=== PATIENT | female | born 1965 | race Caucasian/White ===

== ENCOUNTER 2020-07-10 16:32 | Inpatient (IN) | payer MEDICAID, SELFPAY ==
[2020-07-10 16:36] VITALS: BP 199/90; PULSE 93; RESP 20; TEMP 37.8; O2SAT 99; BMI 42.8
--- NOTE | 2020-07-10 17:57 | CT_ITS ---
EXAMINATION: CT CHEST, ABDOMEN AND PELVIS WITHOUT CONTRAST CLINICAL INFORMATION: Chest pain, abdominal pain and vaginal bleeding. COMPARISON: CT abdomen and pelvis 03/13/2020. TECHNIQUE: Multidetector volumetric imaging was performed from the thoracic inlet through the pubic symphysis . Sagittal and coronal reformatted images were obtained on the technologist's workstation. Imaging, especially in the chest is markedly degraded by motion artifact. This CT examination was performed using dose optimization techniques as appropriate, variously including the following: *Automated exposure control. *Adjustment of mA and/or kV according to patient size (this includes techniques or standardized protocols for targeted exams where dose is matched to indication/reason for exam; i.e. extremities or head). *Use of iterative reconstruction technique. DLP: 1618 mGy-cm FINDINGS: CHEST: Lung: Lungs are hypoinflated. Bibasilar atelectasis is seen. No masses or consolidations are present. Mediastinum: There is mild cardiac enlargement. Moderately extensive coronary calcifications are present. No pleural effusions are seen. Pericardium/Pleura: No significant effusion. No pleural mass or thickening. Chest Wall/Axilla: Unremarkable. ABDOMEN/PELVIS: Peritoneal Space: No significant free air or free fluid identified. Liver, Gallbladder, Biliary Tree: The liver surface is nodular suggesting cirrhosis. The gallbladder is unremarkable with no evidence of radiopaque gallstones, gallbladder wall thickening, or obvious pericholecystic inflammatory changes. Pancreas: Unremarkable. Spleen: Unremarkable. Adrenal Glands: Unremarkable. Kidneys and Ureters: The kidneys are normal in size, shape, and attenuation. A small left renal cyst is probably present. No hydronephrosis, hydroureter, or calculi seen. No perinephric stranding. Bladder: The bladder is markedly distended similar to that noted previously. No bladder mass is seen. Detail is obscured by bilateral hip prostheses. Gastrointestinal Tract: The small and large bowel are unremarkable. The appendix is unremarkable. Abdominal Wall: There is generalized weakness in the abdominal wall with anterior bulging. A focal hernia is not seen. Lymph Nodes: No lymphadenopathy retroperitoneal. Vascular: Atherosclerotic changes but no evidence of AAA. The IVC appears unremarkable. PELVIC VISCERA: An anteverted uterus is present. Both ovaries are identified and appear enlarged but similar to the prior study. An abnormal adnexal mass is not seen. OSSEUS STRUCTURES: Bilateral hip prostheses are present marked degenerative change is present throughout the spine. Large flowing anterior osteophytes are present especially from L2 through L5. IMPRESSION: 1. Slightly nodular appearance to liver suggesting underlying cirrhosis. 2. Mild cardiac enlargement with coronary calcifications. 3. Distended bladder. 4. Bilaterally prominent ovaries, unchanged.
--- NOTE | 2020-07-10 17:57 | ECG_ITS ---
Test Reason : SOB Blood Pressure : / mmHG Vent. Rate : 083 BPM Atrial Rate : 083 BPM P-R Int : 176 ms QRS Dur : 098 ms QT Int : 414 ms P-R-T Axes : 000 -20 035 degrees QTc Int : 486 ms Normal sinus rhythm Left anterior fascicular block unusual p-wave axis Abnormal ECG When compared with ECG of 13-MAR-2020 21:51, abnormal p-waves are new Clinical Correlation Advised Referred By: Michelle Keys Electronically Signed By:RUBEN ADAMS MD
--- NOTE | 2020-07-10 17:58 | XR_ITS ---
EXAMINATION: XR CHEST CLINICAL INFORMATION: Chest pain COMPARISON: 09/11/2019 TECHNIQUE: Frontal view of the chest was obtained. FINDINGS: Again seen is cardiomegaly. Upper zone redistribution compared to the prior study which may indicate some minimal pulmonary vascular congestion. No infiltrates or lung masses are seen. Atelectasis present at the right lung base. Severe degenerative changes seen in both shoulders. IMPRESSION: No acute intrathoracic disease. There may be some minimal pulmonary vascular congestion present.
--- NOTE | 2020-07-10 18:01 | ED_ITS ---
HPI - General Adult General Chief complaint: Vaginal Bleeding Stated complaint: Vag Bleed x5 days Time Seen by Provider: 07/10/20 17:57 Source: patient Mode of arrival: EMS Limitations: no limitations History of Present Illness HPI narrative: 54-year-old female presents with multiple complaints. States that she has chest pain and pressure with palpitations, feels that her chest is tight And that she cannot take a deep breath. She feels short of breath and has abdominal pain with vaginal bleeding. She has known uterine cancer, and was scheduled for hysterectomy 3 months ago however had heart attack and her surgery was postponed. The symptoms have been ongoing for the past few months, with the exception of vaginal bleeding which started 1 week ago. She has gone through 6 pads per day. She reports that the swelling in her legs have gotten worse, that she has not been using her oxygen and that she should be on 2.5 L continuously. she does report intermittent diaphoresis, chills, weakness, and fatigue. Onset (ago): week(s) Location: chest, abdomen and pelvis Radiation: non-radiation Severity: severe Severity scale (1-10): 10 Quality: stabbing, aching, crushing and constant Pain Consistency: constant Relieving factors: none Exacerbating factors: movement Associated symptoms: diaphoresis, fever/chills, malaise and shortness of breath Treatments prior to arrival: none Related Data Allergies Allergy/AdvReac Type Severity Reaction Status Date / Time No Known Allergies Allergy Mild NOT Unverified 06/17/20 15:19 APPLICABLE statins Allergy Unknown myositis Uncoded 12/30/19 00:00 Review of Systems Review of Systems: Constitutional: No Fever, Intermittent chills ENT/Mouth: No sore throat, No Rhinorrhea Eyes: No Eye Pain, No Redness Cardiovascular: left-sided chest pain, pressure, shortness of breath, bilateral lower extremity edema Respiratory: No Cough, No Sputum, No Wheezing Gastrointestinal: positive Nausea, No Vomiting, No Diarrhea, positive abdominal pain, Genitourinary: positive irregular bleeding, No Dysuria, No Urinary Frequency, positive pelvic pain Musculoskeletal: No Myalgias Skin: No rash Neuro: Weakness, No Headache Psych: No Anxiety/Panic, No Depression Heme/Lymph: No bruising, No Lymphadenopathy Endocrine: No Polyuria, No Polydipsia PMFSH Past Medical History Attestation statement: The following information was validated with the patient. Medical History CHF (congestive heart failure) Diabetes HTN (hypertension) Pancreatitis Social History Social History Alcohol intake: never Smoked in Last 30 Days: No Use of substances other than those prescribed or required for medical reasons: No Advance Directives: No Advance Directives Information Provided: Yes Physical Exam Vital Signs: Vital Signs: Vital Signs Temp Pulse Resp BP Pulse Ox 07/10/20 22:49 69 16 144/64 H 07/10/20 20:40 70 16 142/64 H 07/10/20 19:37 16 07/10/20 19:32 79 16 151/70 H 100 07/10/20 16:36 100.0 F 93 20 199/90 H 99 Body Mass Index 42.8 Appearance: Alert. Oriented X3. moderate distress. Eyes: Pupils equal, round and reactive to light. ENT: Pharynx normal. Neck: Normal inspection. Neck supple. CVS: Normal heart rate and rhythm. Pulses normal. Respiratory: No respiratory distress. Breath sounds normal. Abdomen: Soft and tender to palpation to suprapubic. morbid obesity Skin: Skin warm and dry. Normal skin color. Normal skin turgor. Extremities: +3 pitting edema bilateral lower extremities. Neuro: Oriented X 3. No motor deficit. No sensory deficit. Course Course Course Narrative: patient has multiple complaints including chest pain, abdominal pain, vaginal bleeding, uterine cancer, and bilateral lower extremity swelling. We will rule out ACS, acute abdomen, complete pelvic exam, and labs. Pelvic exam shows closed cervix, with moderate amounts of dark blood with manju tting about 3 mm in size, malodorous, no purulent drainage, no cervical motion tenderness or purulent drainage, adnexal tenderness bilaterally. 2 RNs at bedside to assist with procedure. Patient tolerated procedure well. Reevaluation(s) Reevaluation #1: Patient complaining of pain, dry heaving, 2nd dose of Dilaudid and pain Time: 20:27 Reevaluation #2: discussion with hospitalist regarding plan of care, patient will be admitted, consult with OBGYN for vaginal bleeding, discussion with OBGYN, if symptoms persist or bleeding worsens OBGYN will consult. Time: 21:40 Consultations Consultation #1: Dav Time: 21:40 Consultation #2: Bon Medical Decision Making Differential Diagnosis Differential Diagnosis: Abnormal vaginal bleeding, uterine cancer, anemia, [place] Medical Records Medical records reviewed: Yes I reviewed the patient's medical records. Lab Data Lab results reviewed: Yes I reviewed the patient's lab results. Result diagrams: 07/10/20 18:29 07/10/20 19:15 Labs: Lab Results 07/10/20 07/10/20 07/10/20 Range/Units 18:29 18:29 18:29 WBC 5.7 (4.8-10.8) X10*3/uL RBC 3.34 L (4.20-5.50) X10*6/uL Hgb 10.3 L (12.0-16.0) g/dl Hct 32.0 L (37-47) % MCV 95.8 (80-98) fL MCH 30.8 (27.0-33.0) pg MCHC 32.2 (31.0-35.0) g/dl RDW 13.3 (11.0-16.0) % Plt Count 120 L (160-400) X10*3/uL MPV 11.4 (9.4-12.3) fL Immature Gran % (Auto) 0.4 (0.0-0.4) % Neut % (Auto) 57.4 (45-73) % Lymph % (Auto) 27.4 (20-40) % O'Brien % (Auto) 9.9 (2-11) % Eos % (Auto) 4.2 H (0-4) % Baso % (Auto) 0.7 (0-2) % Lymph # (Auto) 1.6 (1.2-4.9) X10*3/uL O'Brien # (Auto) 0.6 (0.1-1.2) X10*3/uL Eos # (Auto) 0.2 (0.0-0.4) X10*3/uL Baso # (Auto) 0.0 (0.0-0.2) X10*3/uL Abs Immat Gran (auto) 0.02 (0.00-0.03) X10*3/uL Absolute Neuts (auto) 3.3 (2.0-8.3) X10*3/uL Absolute Nucleated RBC 0.000 (0.0-0.012) X10*3/uL Nucleated RBC % (auto) 0.0 (0.0-0.2) /100WBC Smear Tech's Comments VERIFIED PT 11.4 (10.8-13.0) SEC INR 1.0 (0.9-1.1) Sodium Cancelled Potassium Cancelled Chloride Cancelled Carbon Dioxide Cancelled Anion Gap Cancelled BUN Cancelled Creatinine Cancelled Estim Creat Clear Calc Cancelled Estimated GFR Cancelled Random Glucose Cancelled Lactic Acid (0.5-2.0) mmol/L Calcium Cancelled Magnesium Cancelled Total Bilirubin Cancelled Direct Bilirubin Cancelled AST Cancelled ALT Cancelled Alkaline Phosphatase Cancelled Troponin I High Sens (<3.5-17.0) ng/L B-Natriuretic Peptide (<100) pg/mL Total Protein Cancelled Albumin Cancelled Lipase Cancelled Blood Type Antibody Screen 07/10/20 07/10/20 07/10/20 Range/Units 18:29 18:29 18:59 WBC (4.8-10.8) X10*3/uL RBC (4.20-5.50) X10*6/uL Hgb (12.0-16.0) g/dl Hct (37-47) % MCV (80-98) fL MCH (27.0-33.0) pg MCHC (31.0-35.0) g/dl RDW (11.0-16.0) % Plt Count (160-400) X10*3/uL MPV (9.4-12.3) fL Immature Gran % (Auto) (0.0-0.4) % Neut % (Auto) (45-73) % Lymph % (Auto) (20-40) % O'Brien % (Auto) (2-11) % Eos % (Auto) (0-4) % Baso % (Auto) (0-2) % Lymph # (Auto) (1.2-4.9) X10*3/uL O'Brien # (Auto) (0.1-1.2) X10*3/uL Eos # (Auto) (0.0-0.4) X10*3/uL Baso # (Auto) (0.0-0.2) X10*3/uL Abs Immat Gran (auto) (0.00-0.03) X10*3/uL Absolute Neuts (auto) (2.0-8.3) X10*3/uL Absolute Nucleated RBC (0.0-0.012) X10*3/uL Nucleated RBC % (auto) (0.0-0.2) /100WBC Smear Tech's Comments PT (10.8-13.0) SEC INR (0.9-1.1) Sodium Potassium Chloride Carbon Dioxide Anion Gap BUN Creatinine Estim Creat Clear Calc Estimated GFR Random Glucose Lactic Acid 1.3 (0.5-2.0) mmol/L Calcium Magnesium Total Bilirubin Direct Bilirubin AST ALT Alkaline Phosphatase Troponin I High Sens 44.6 H (<3.5-17.0) ng/L B-Natriuretic Peptide 113 H (<100) pg/mL Total Protein Albumin Lipase Blood Type O Positive Antibody Screen NEGATIVE 07/10/20 Range/Units 19:15 WBC (4.8-10.8) X10*3/uL RBC (4.20-5.50) X10*6/uL Hgb (12.0-16.0) g/dl Hct (37-47) % MCV (80-98) fL MCH (27.0-33.0) pg MCHC (31.0-35.0) g/dl RDW (11.0-16.0) % Plt Count (160-400) X10*3/uL MPV (9.4-12.3) fL Immature Gran % (Auto) (0.0-0.4) % Neut % (Auto) (45-73) % Lymph % (Auto) (20-40) % O'Brien % (Auto) (2-11) % Eos % (Auto) (0-4) % Baso % (Auto) (0-2) % Lymph # (Auto) (1.2-4.9) X10*3/uL O'Brien # (Auto) (0.1-1.2) X10*3/uL Eos # (Auto) (0.0-0.4) X10*3/uL Baso # (Auto) (0.0-0.2) X10*3/uL Abs Immat Gran (auto) (0.00-0.03) X10*3/uL Absolute Neuts (auto) (2.0-8.3) X10*3/uL Absolute Nucleated RBC (0.0-0.012) X10*3/uL Nucleated RBC % (auto) (0.0-0.2) /100WBC Smear Tech's Comments PT (10.8-13.0) SEC INR (0.9-1.1) Sodium 140 Potassium 3.5 Chloride 105 Carbon Dioxide 28 Anion Gap 11 L BUN 19 H Creatinine 0.86 Estim Creat Clear Calc 86.8 Estimated GFR > 60 Random Glucose 187 H Lactic Acid (0.5-2.0) mmol/L Calcium 8.2 L Magnesium 1.9 Total Bilirubin 0.4 Direct Bilirubin < 0.2 AST 24 ALT 13 Alkaline Phosphatase 197 H Troponin I High Sens (<3.5-17.0) ng/L B-Natriuretic Peptide (<100) pg/mL Total Protein 5.9 L Albumin 2.6 L Lipase 11 Blood Type Antibody Screen Imaging Data Chest x-ray: Attestation: I personally reviewed and interpreted this imaging study as follows: Radiologist's impression: FINDINGS: Again seen is cardiomegaly. Upper zone redistribution compared to the prior study which may indicate some minimal pulmonary vascular congestion. No infiltrates or lung masses are seen. Atelectasis present at the right lung base. Severe degenerative changes seen in both shoulders. IMPRESSION: No acute intrathoracic disease. There may be some minimal pulmonary vascular congestion present. CT scan - pelvis: Attestation: I personally reviewed and interpreted this imaging study as follows: Radiologist's impression: FINDINGS: CHEST: Lung: Lungs are hypoinflated. Bibasilar atelectasis is seen. No masses or consolidations are present. Mediastinum: There is mild cardiac enlargement. Moderately extensive coronary calcifications are present. No pleural effusions are seen. Pericardium/Pleura: No significant effusion. No pleural mass or thickening. Chest Wall/Axilla: Unremarkable. ABDOMEN/PELVIS: Peritoneal Space: No significant free air or free fluid identified. Liver, Gallbladder, Biliary Tree: The liver surface is nodular suggesting cirrhosis. The gallbladder is unremarkable with no evidence of radiopaque gallstones, gallbladder wall thickening, or obvious pericholecystic inflammatory changes. Pancreas: Unremarkable. Spleen: Unremarkable. Adrenal Glands: Unremarkable. Kidneys and Ureters: The kidneys are normal in size, shape, and attenuation. A small left renal cyst is probably present. No hydronephrosis, hydroureter, or calculi seen. No perinephric stranding. Bladder: The bladder is markedly distended similar to that noted previously. No bladder mass is seen. Detail is obscured by bilateral hip prostheses. Gastrointestinal Tract: The small and large bowel are unremarkable. The appendix is unremarkable. Abdominal Wall: There is generalized weakness in the abdominal wall with anterior bulging. A focal hernia is not seen. Lymph Nodes: No lymphadenopathy retroperitoneal. Vascular: Atherosclerotic changes but no evidence of AAA. The IVC appears unremarkable. PELVIC VISCERA: An anteverted uterus is present. Both ovaries are identified and appear enlarged but similar to the prior study. An abnormal adnexal mass is not seen. OSSEUS STRUCTURES: Bilateral hip prostheses are present marked degenerative change is present throughout the spine. Large flowing anterior osteophytes are present especially from L2 through L5. IMPRESSION: 1. Slightly nodular appearance to liver suggesting underlying cirrhosis. 2. Mild cardiac enlargement with coronary calcifications. 3. Distended bladder. 4. Bilaterally prominent ovaries, unchanged. ECG Data Attestation: I personally reviewed and interpreted this ECG as follows: Prior ECG tracings: available for review Interpretation: Vent. Rate : 083 BPM Atrial Rate : 083 BPM P-R Int : 176 ms QRS Dur : 098 ms QT Int : 414 ms P-R-T Axes : 000 -20 035 degrees QTc Int : 486 ms Normal sinus rhythm Prolonged QT Abnormal ECG When compared with ECG of 13-MAR-2020 21:51, No significant change was found Critical Care Time Critical Care Time Critical Care Time: Yes Total Critical Care Time: 60 Attestation: I have personally provided critical care time exclusive of time spent on separately billable procedures. Time includes review of laboratory data, radiology results, discussion with consultants, and monitoring for potential decompensation. Interventions were performed as documented. Discharge Plan Discharge Clinical Impression: Vaginal bleeding Cancer, uterine Qualifiers: Malignant neoplasm of uterus location: body of uterus Malignant neoplasm of body of uterus location: unspecified location Qualified Code(s): C54.9 - Malignant neoplasm of corpus uteri, unspecified CHF (congestive heart failure) Qualifiers: Heart failure type: systolic Heart failure chronicity: acute on chronic Qualified Code(s): I50.23 - Acute on chronic systolic (congestive) heart failure Patient Disposition: Admitted As Inpatient Discharge Date/Time: 07/11/20 00:25
[2020-07-10 18:39] LABS: Eosinophils Absolute Auto 0.2 X10*3/uL (0.0-0.4); MANUAL DIFF FLAG SCAN; PLT CLUMP 1; SCAN SMEAR FLAG 1
[2020-07-10 18:41] LABS: Basophils Percent Auto 0.7 % (0-2); Eosinophils Percent Auto 4.2 % (0-4); Hemoglobin 10.3 g/dl (12.0-16.0); Imm Gran Abs Auto 0.02 X10*3/uL (0.00-0.03); Imm Gran Pct Auto 0.4 % (0.0-0.4); Lymphocytes Absolute Auto 1.6 X10*3/uL (1.2-4.9); Lymphocytes Percent Auto 27.4 % (20-40); Mean Corpuscular HGB Conc 32.2 g/dl (31.0-35.0); Mean Corpuscular Hemoglobin 30.8 pg (27.0-33.0); Mean Corpuscular Volume 95.8 fL (80-98); Mean Platelet Volume 11.4 fL (9.4-12.3); Monocytes Absolute Auto 0.6 X10*3/uL (0.1-1.2); Monocytes Percent Auto 9.9 % (2-11); Neutrophils Absolute Auto 3.3 X10*3/uL (2.0-8.3); Neutrophils Percent Auto 57.4 % (45-73); Platelet Count 120 X10*3/uL (160-400); Red Blood Count 3.34 X10*6/uL (4.20-5.50); Red Cell Distribution Width 13.3 % (11.0-16.0); White Blood Count 5.7 X10*3/uL (4.8-10.8)
[2020-07-10 18:47] LABS: Prothrombin Time 11.4 SEC (10.8-13.0)
[2020-07-10 19:01] LABS: Lactic Acid 1.3 mmol/L (0.5-2.0)
--- NOTE | 2020-07-10 19:09 | PC.NURSE ---
Report taken from brooke Belcher RN resuming care. semiconductor manufacturing technician at bedside to obtain EKG and labs. Pt sitting upright in bed, CAOx4, speaking full sentences. Continue to monitor.
[2020-07-10 19:17] LABS: SLIDE REVIEW VERIFIED
[2020-07-10 19:20] LABS: B Type Natriuretic Peptide 113 pg/mL (<100); Troponin-I High Sensitivity 44.6 ng/L (<3.5-17.0)
[2020-07-10 19:32] VITALS: BP 151/70; PULSE 79; RESP 16; O2SAT 100
[2020-07-10 19:37] VITALS: RESP 16
[2020-07-10] MEDS: HYDROmorphone HCl 2 MG/ML VIAL IVPUSH (19:37)
[2020-07-10] MEDS: 0.9 % Sodium Chloride 1,000 ML 999 ML IVCONT (19:37)
[2020-07-10] MEDS: ondansetron HCL 4 MG/2 ML VIAL IVPUSH (19:37)
--- NOTE | 2020-07-10 19:40 | PC.NURSE ---
Pt medicated per EMAR for 03/10 pain. 2 mg Dilaudid IVP verified with TRANSITIONS MANAGER prior to administration. Pt resting in bed at this time, VSS. Call zee within reach, continue to monitor.
[2020-07-10 19:58] LABS: Alanine Aminotransferase 13 U/L (0-31); Albumin Level 2.6 g/dL (3.5-5.0); Alkaline Phosphatase 197 U/L (39-117); Aspartate Amino Transferase 24 U/L (5-31); Bilirubin Direct < 0.2 mg/dL (0.0-0.5); Bilirubin Total 0.4 mg/dL (0.0-1.0); Blood Urea Nitrogen 19 mg/dL (9-16); Calcium 8.2 mg/dL (8.4-10.2); Creatinine Clr Calc Pharmacy 86.8; Estimated Glomerular Filt Rate > 60; Glucose Random 187 mg/dL (60-115); Lipase 11 U/L (8-78); Magnesium 1.9 mg/dL (1.6-2.6); Total Protein 5.9 g/dL (6.5-8.0)
[2020-07-10 20:09] LABS: Anion Gap 11 (12-20); Carbon Dioxide 28 mmol/L (22-29); Chloride 105 mmol/L (96-108); Potassium 3.5 mmol/l (3.3-5.1); Sodium 140 mmol/L (135-145)
[2020-07-10 20:40] VITALS: BP 142/64; PULSE 70; RESP 16
[2020-07-10] MEDS: HYDROmorphone HCl 1 MG/ML SYRINGE IVPUSH (20:42)
[2020-07-10] MEDS: diphenhydrAMINE HCL 50 MG/ML VIAL 25 MG IVPUSH (20:42)
[2020-07-10] MEDS: Metoclopramide HCl 10 MG/2 ML VIAL IVPUSH (20:42)
--- NOTE | 2020-07-10 20:44 | PC.NURSE ---
Pt found to be dry heaving, reports return of nausea. Pt medicated with Reglan, Benadryl and Dilaudid per EMAR. VSS. Continue to monitor.
--- NOTE | 2020-07-10 21:48 | PC.NURSE ---
Hospitalist at bedside.
--- NOTE | 2020-07-10 22:46 | PC.NURSE ---
This RN at bedside attempting to complete Med Rec with pt. Pt does not have a list on her and is unsure of names/doses. Pt calling family to obtain list.
[2020-07-10 22:49] VITALS: BP 144/64; PULSE 69; RESP 16
--- NOTE | 2020-07-10 23:21 | PC.NURSE ---
REPORT RECEIVED. ORDER FAXED TO [facility]. PT WAS ASSISTED TO COMMODE. MAX 2. 3RD PERSON REQUIRED TO HELP WIPE PATIENT.
[2020-07-11] VITALS (13 sets, daily range): BP systolic 131–190; BP diastolic 53–78; PULSE 60–87; RESP 17–20; TEMP 36.6–37.6; O2SAT 94–100; BMI 42.8
--- NOTE | 2020-07-11 | US_ITS ---
EXAMINATION: US PELVIS, COMPLETE CLINICAL INFORMATION: Vaginal bleeding. COMPARISON: CT abdomen and pelvis from 05/29/2016 and 07/10/2020. Pelvic ultrasound from 01/18/2017 and 05/22/2019. TECHNIQUE: Sonographic imaging of the pelvis was performed using a transabdominal transducer. FINDINGS: The urinary bladder is well-distended. The uterus is anteverted and anteflexed. The uterus measures approximately 10 cm long, 5.7 cm AP and 8 cm transverse. 3.4 x 2.5 x 3.5 cm hypoechoic structure in the posterior right uterine body, consistent with leiomyoma, measures up to 2 cm on 01/18/2017, and was 2.5 cm maximum dimension on 05/22/2019. The endometrium measures up to 0.8 cm AP, which is stable compared to prior ultrasound exams of 01/18/2017 and 05/22/2019. No evidence of endometrial polyp or mass. The ovaries have a chronically enlarged appearance on prior imaging exams. The right ovary is currently 4.8 x 2.5 x 2.3 cm and the left ovary is 3.2 x 3.9 x 3.4 cm. There are no focal ovarian lesions. No pelvic free fluid. IMPRESSION: * The endometrium has normal, homogeneous echotexture, measuring up to 0.8 cm AP, unchanged compared to the prior pelvic ultrasound exams from 01/18/2017 and 05/22/2019. * The hypoechoic structure in the right posterior uterine body is consistent with an intramural leiomyoma. It measures up to 3.5 cm maximum dimension compared to 2.5 cm on 05/22/2019. * The ovaries are chronically, mildly enlarged considering patient age. Note that mild bilateral ovarian enlargement can be seen on multiple prior imaging exams, including 05/29/2016. No focal masses are detected.
[2020-07-11 00:45] LABS: Glucose, Whole Blood 57 mg/dL (60-115)
[2020-07-11 01:02] LABS: Troponin-I High Sensitivity 58.3 ng/L (<3.5-17.0)
--- NOTE | 2020-07-11 01:16 | P.HPIM_ITS ---
History of Present Illness Date of Service: 07/10/20 Chief Complaint: vaginal bleed, chest pain this is a 54-year-old female with an extensive past medical history who presents to the hospital complaining of vaginal bleed for 1 week. Patient also developed chest pain, for the past 2 days radiating to the left arm. Patient describes the left chest pain as burning as well as pressure, relieved with nitro sometimes and sometimes with rest, not exacerbated by exertion. the vaginal bleed started about 1 wk ago, daily, non-stop, pt has sob which has not changed from her baseline. She does complain of lower extremity edema that has worsened over the past few days, patient uses 2 L of oxygen at baseline which h as not increased in demand. She has no orthopnea or PND. On arrival to the ED hemodynamically stable with a temp of a 100?, pulse rate of 93, respiratory rate of 20, blood pressure 199/90 which improved to 1 40s over 60s, 99% on room air. labs are significant for Hemoglobin of 10.3 which was 11.8 on 03/13, alk-phos of 197, tropes high sensitivity of 44.6, trended to 58.3, BNP of 113 which is lower than her usual. PAST MEDICAL HISTORY: 1. History of idiopathic pancreatitis. 2. History of anxiety. 3. Asthma. 4. COPD, on home oxygen, 5. chronic diastolic congestive heart failure. Last echocardiogram from August 2018 shows an EF of 55% to 60%, with grade 1 diastolic dysfunction. 6. Hypertension. 7. Dyslipidemia. 8. Insulin-dependent diabetes. 9. Chronic back pain. 10. Diabetic neuropathy. 11. Obstructive sleep apnea, on CPAP. 12. Osteoarthritis. 13. History of obesity. 14. Chronic elevation in LFTs. PAST SURGICAL HISTORY: Bilateral hip replacement, abscess and drainage under her right arm. SOCIAL HISTORY: The patient resides alone. She has 2 BLASTING ENTRYMAN. She ambulates with the use of a wheelchair. She denies use of tobacco, alcohol, or recreational drugs. She does have a BLASTING ENTRYMAN in the morning and in the afternoon, and the visiting nurse who comes twice daily. Review of Systems Review of Systems: Yes all other systems are reviewed and are negative [facility] Medical History (Updated 07/11/20 @ 07:16 by Moses Demarco MD) CHF (congestive heart failure) Diabetes HTN (hypertension) Pancreatitis Social History Household Members: Children Housing: Apartment Do you presently have visiting nurse or other home services: Yes Alcohol intake: never Smoking Status: Former smoker Smoked in Last 30 Days: No Use of substances other than those prescribed or required for medical reasons: No Have you been hit, kicked, punched, or otherwise hurt by someone within the past year? If so, by whom?: No Do you feel safe in your current relationship?: No Is there a partner from a previous relationship who is making you feel unsafe now?: No Are you made to feel afraid or neglected: No (reports falling 6 times recently) [employer] [facility] Practices: mosque restorationism Advance Directives: No Advance Directives Information Provided: Yes Do you have thoughts of harming others: None Do you have a plan to hurt others: No Plan Recently lost weight without trying: Unsure Meds Allergies Allergy/AdvReac Type Severity Reaction Status Date / Time No Known Allergies Allergy Mild NOT Unverified 06/17/20 15:19 APPLICABLE statins Allergy Unknown myositis Uncoded 12/30/19 00:00 Physical Exam Vital Signs and Narrative: Vital Signs: Last Vital Signs Temp 97.8 F 07/11/20 01:04 Pulse 60 07/11/20 01:04 Resp 18 07/11/20 01:04 BP 153/72 H 07/11/20 01:04 Pulse Ox 100 07/11/20 01:04 Body Mass Index 42.8 Results Labs Labs: Laboratory Tests 07/10/20 07/10/20 07/10/20 18:29 18:29 18:29 WBC 5.7 RBC 3.34 L Hgb 10.3 L Hct 32.0 L MCV 95.8 MCH 30.8 MCHC 32.2 RDW 13.3 Plt Count 120 L MPV 11.4 Immature Gran % (Auto) 0.4 Neut % (Auto) 57.4 Lymph % (Auto) 27.4 [place] % (Auto) 9.9 Eos % (Auto) 4.2 H Baso % (Auto) 0.7 Lymph # (Auto) 1.6 [place] # (Auto) 0.6 Eos # (Auto) 0.2 Baso # (Auto) 0.0 Abs Immat Gran (auto) 0.02 Absolute Neuts (auto) 3.3 Absolute Nucleated RBC 0.000 Nucleated RBC % (auto) 0.0 Smear Tech's Comments VERIFIED PT 11.4 INR 1.0 Sodium Cancelled Potassium Cancelled Chloride Cancelled Carbon Dioxide Cancelled Anion Gap Cancelled BUN Cancelled Creatinine Cancelled Estim Creat Clear Calc Cancelled Estimated GFR Cancelled POC Glucose Random Glucose Cancelled Lactic Acid Calcium Cancelled Magnesium Cancelled Total Bilirubin Cancelled Direct Bilirubin Cancelled AST Cancelled ALT Cancelled Alkaline Phosphatase Cancelled Troponin I High Sens B-Natriuretic Peptide Total Protein Cancelled Albumin Cancelled Lipase Cancelled Blood Type Antibody Screen 07/10/20 07/10/20 07/10/20 18:29 18:29 18:59 WBC RBC Hgb Hct MCV MCH MCHC RDW Plt Count MPV Immature Gran % (Auto) Neut % (Auto) Lymph % (Auto) [place] % (Auto) Eos % (Auto) Baso % (Auto) Lymph # (Auto) [place] # (Auto) Eos # (Auto) Baso # (Auto) Abs Immat Gran (auto) Absolute Neuts (auto) Absolute Nucleated RBC Nucleated RBC % (auto) Smear Tech's Comments PT INR Sodium Potassium Chloride Carbon Dioxide Anion Gap BUN Creatinine Estim Creat Clear Calc Estimated GFR POC Glucose Random Glucose Lactic Acid 1.3 Calcium Magnesium Total Bilirubin Direct Bilirubin AST ALT Alkaline Phosphatase Troponin I High Sens 44.6 H B-Natriuretic Peptide 113 H Total Protein Albumin Lipase Blood Type O Positive Antibody Screen NEGATIVE 07/10/20 07/11/20 07/11/20 19:15 00:17 00:42 WBC RBC Hgb Hct MCV MCH MCHC RDW Plt Count MPV Immature Gran % (Auto) Neut % (Auto) Lymph % (Auto) [place] % (Auto) Eos % (Auto) Baso % (Auto) Lymph # (Auto) [place] # (Auto) Eos # (Auto) Baso # (Auto) Abs Immat Gran (auto) Absolute Neuts (auto) Absolute Nucleated RBC Nucleated RBC % (auto) Smear Tech's Comments PT INR Sodium 140 Potassium 3.5 Chloride 105 Carbon Dioxide 28 Anion Gap 11 L BUN 19 H Creatinine 0.86 Estim Creat Clear Calc 86.8 Estimated GFR > 60 POC Glucose 57 L* Random Glucose 187 H Lactic Acid Calcium 8.2 L Magnesium 1.9 Total Bilirubin 0.4 Direct Bilirubin < 0.2 AST 24 ALT 13 Alkaline Phosphatase 197 H Troponin I High Sens 58.3 H B-Natriuretic Peptide Total Protein 5.9 L Albumin 2.6 L Lipase 11 Blood Type Antibody Screen Imaging CT scan - chest: Radiologist's impression: IMPRESSION: 1. Slightly nodular appearance to liver suggesting underlying cirrhosis. 2. Mild cardiac enlargement with coronary calcifications. 3. Distended bladder. 4. Bilaterally prominent ovaries, unchanged. Assessment and Plan (1) Vaginal bleeding: Status: Acute (2) Chest pain: Status: Acute (3) Elevated troponin: Status: Acute (4) Diabetes: Status: Acute (5) HTN (hypertension): Status: Acute (6) Cancer, uterine: Qualifiers: Malignant neoplasm of body of uterus location: unspecified location Malignant neoplasm of uterus location: body of uterus Qualified Code(s): C54.9 - Malignant neoplasm of corpus uteri, unspecified Status: Acute (7) CHF (congestive heart failure): Qualifiers: Heart failure chronicity: acute on chronic Heart failure type: systolic Qualified Code(s): I50.23 - Acute on chronic systolic (congestive) heart failure Status: Acute This is a 54-year-old with past medical history as above who presents to the hospital with multiple complaints including vaginal bleed, and chest pain. # Vaginal bleed - has history of uterine cancer? - Apparently patient was due for hysterectomy on previous admission but was not able to have that done - has had vaginal bleed for the past 1 week - hemodynamically stable plan: - Transvaginal and pelvic US - Ob/Gyne consult - H&H qAM # Chest pain/Elevated troponin - Typical , with pressure but also has burning - Trop slightly elevated but no delta - No new EKG changes Plan: - Cardiac mon - Cardiology consult - Will hold off on ordering echo pending cardiology # Hx of CHF - No acute exacerbation - Dyspnea at baseline with no increased O2 requirement, No orthopnea, no PND Plan: - continue home regimen # COPD - No acute exacerbation # DM - Low dose sliding scale insulin - Diabetic diet # Chronic elevated LFTs - monitor DVT prophylaxis: Heparin date of service 07/10/2020
[2020-07-11] MEDS: Heparin Sodium,Porcine 5,000 UNIT/ML VIAL 5000 UNIT SUBCUT (01:29)
[2020-07-11] MEDS: 0.9 % Sodium Chloride Flush 3 ML SYRINGE IVFLUSH ×3 (01:33→15:27)
[2020-07-11] MEDS: Nitroglycerin 0.4 MG TAB.SUBL SUBLINGUAL (02:19)
[2020-07-11] MEDS: oxyCODONE HCl Immed Release 5 MG TABLET 10 MG PO ×2 (02:22→13:39)
[2020-07-11 02:36] LABS: Glucose, Whole Blood 178 mg/dL (60-115)
[2020-07-11 02:36] LABS: Glucose, Whole Blood 47 mg/dL (60-115)
[2020-07-11 03:56] LABS: Glucose, Whole Blood 197 mg/dL (60-115)
[2020-07-11 05:28] LABS: Glucose, Whole Blood 187 mg/dL (60-115)
[2020-07-11 06:18] LABS: Glucose, Whole Blood 181 mg/dL (60-115)
[2020-07-11 07:28] LABS: Glucose, Whole Blood 189 mg/dL (60-115)
[2020-07-11 08:07] LABS: Basophils Percent Auto 0.4 % (0-2); Eosinophils Absolute Auto 0.3 X10*3/uL (0.0-0.4); Eosinophils Percent Auto 5.4 % (0-4); Hematocrit 31.2 % (37-47); Hemoglobin 9.8 g/dl (12.0-16.0); Imm Gran Abs Auto 0.01 X10*3/uL (0.00-0.03); Imm Gran Pct Auto 0.2 % (0.0-0.4); Lymphocytes Absolute Auto 0.5 X10*3/uL (1.2-4.9); MANUAL DIFF FLAG SCAN; Mean Corpuscular HGB Conc 31.4 g/dl (31.0-35.0); Mean Corpuscular Volume 98.7 fL (80-98); Mean Platelet Volume 12.2 fL (9.4-12.3); Monocytes Absolute Auto 0.5 X10*3/uL (0.1-1.2); Monocytes Percent Auto 9.2 % (2-11); Neutrophils Absolute Auto 3.8 X10*3/uL (2.0-8.3); Neutrophils Percent Auto 75.8 % (45-73); Platelet Count 104 X10*3/uL (160-400); Red Blood Count 3.16 X10*6/uL (4.20-5.50); Red Cell Distribution Width 13.5 % (11.0-16.0); SCAN SMEAR FLAG 1
[2020-07-11 08:41] LABS: Blood Urea Nitrogen 19 mg/dL (9-16); Creatinine Clr Calc Pharmacy 73.2; Estimated Glomerular Filt Rate 56; Glucose Random 205 mg/dL (60-115)
[2020-07-11 08:57] LABS: Anion Gap 11 (12-20); Carbon Dioxide 30 mmol/L (22-29); Chloride 105 mmol/L (96-108); Potassium 3.8 mmol/l (3.3-5.1); Sodium 142 mmol/L (135-145)
[2020-07-11 09:41] LABS: SLIDE REVIEW VERIFIED
--- NOTE | 2020-07-11 09:55 | P.CONOB_ITS ---
SEAFOOD TECHNOLOGY SPECIALIST - CN: HPI Data of Consult Requesting Physician: Refugio Moser MD Primary Care Provider: Unknown Physician Consult Narrative Narrative: Chrissy Saez is a 54 year old postmenopausal female admitted with chest pain, likely CHF exacerbation, and vaginal bleeding for one week. Ms. Saez reports the onset of bleeding one week ago. She reports the bleeding has increased since onset. She reports that she wears pampers, which she changes six times daily and once overnight. She reports she may be changing one additional time d/t the bleeding. She reports that she is a little more short of breath than normal, and a little dizzy/lightheaded. She reports that she was previously told that she has uterine cancer after having a biopsy. She was supposed to have surgery to remove her uterus, but then she came to the hospital because her foot was shaking and she was told she was having a heart attack. Her doctor then said that she could not do the surgery. She reports that because she couldn't have the surgery and they could not place an IUD d/t her not tolerating it d/t her history of hip replacement, they started her on oral hormones. She states that she has been taking them twice a day every day. She is unable to tell me what pill she is taking. Her doctor is at [facility] and she thinks her doctor's name is Dr. Presley. She has no questions at this time. I called and spoke with Dr. Kellie Presley at [facility], who clarified the patient's history. She reports that Ms. Saez has never had endometrial cancer, that the patient was originally sent to her for enlarged ovaries and hirsutism, deepening of her voice. She did an endometrial biopsy which showed pre-cancer. She recommended an IUD; however, Ms. Saez declined and for this reason, they were planning a hysterectomy. However, given no diagnosis of cancer, following Ms. Saez' [place], her surgery is canceled indefinitely. Because Ms. Saez declined an IUD, she was started on Megace 80mg PO BID. Most recent endometrial biopsy was done in March and negative for cancer. cc:: CC: Refugio Moser MD Meds Allergies Allergy/AdvReac Type Severity Reaction Status Date / Time No Known Allergies Allergy Mild NOT Unverified 06/17/20 15:19 APPLICABLE statins Allergy Unknown myositis Uncoded 12/30/19 00:00 SEAFOOD TECHNOLOGY SPECIALIST - Results Labs CBC & Chem 7: 07/11/20 06:38 07/11/20 06:38 Labs: Short CBC 07/10/20 07/11/20 Range/Units 18:29 06:38 WBC 5.7 5.0 (4.8-10.8) X10*3/uL Hgb 10.3 L 9.8 L (12.0-16.0) g/dl Hct 32.0 L 31.2 L (37-47) % Plt Count 120 L 104 L (160-400) X10*3/uL BMP 07/10/20 07/10/20 07/11/20 18:29 19:15 06:38 Sodium Cancelled 140 142 Potassium Cancelled 3.5 3.8 Chloride Cancelled 105 105 Carbon Dioxide Cancelled 28 30 H BUN Cancelled 19 H 19 H Creatinine Cancelled 0.86 1.02 Calcium Cancelled 8.2 L 8.0 L Liver Function 07/10/20 07/10/20 Range/Units 18:29 19:15 Total Bilirubin Cancelled 0.4 Direct Bilirubin Cancelled < 0.2 AST Cancelled 24 ALT Cancelled 13 Alkaline Phosphatase Cancelled 197 H Albumin Cancelled 2.6 L Antibody Screen Antibody Screen NEGATIVE 07/10/20 18:59 Assessment and Plan (1) Endometrial hyperplasia: Status: Acute Patient has known history of endometrial hyperplasia under the care of Dr. Presley, overnight associate oncologist at [facility]. She reports that she is compliant with her prescribed Megace 80mg BID PO. I discussed this patient with Dr. Presley, who recommended continuing her megace during admission. She recommended no other interventions as long as H/H remains relatively stable; per her report, Ms. Saez lives between 10 and 11. Ms. Saez will follow up with her outpatient after this admission. Dr. Presley recommends an IUD for her and will continue to discuss this with her outpatient. I ordered Megace and additionally ferrous sulfate 325mg QD. Consider H/H less frequently than daily to not contribute to her blood loss.
[2020-07-11 11:46] LABS: Glucose, Whole Blood 202 mg/dL (60-115)
--- NOTE | 2020-07-11 12:00 | P.CONCA_ITS ---
History of Present Illness History of Present Illness Date of Consult: July 11, 2020 Requesting physician: Refugio Moser Chief complaint: Vag Bleed x5 days VAGINAL BLEED, ACS R/O Narrative: This is a cardiology consultation regarding chest pain and elevated troponins. She is a patient Dr. Mares. She has a history of nonobstructive cor onary artery disease as well as multiple cardiovascular risk factors including type 2 diabetes, hypertension dyslipidemia. Current admission is for complaints of chest pain over the last 2 days radiating to the left arm. at the same time, she was also noticing some palpitations. She has chronic shortness of breath which seems to be at her baseline. She also has had vaginal bleeding starting about a week ago. She has chronic lower extremity edema that has not changed much recently. She was actually seen by Dr. Mares in the office couple weeks ago. At that time, she had also complained of chest pain and was planned that she will get a myocardial perfusion imaging study as an outpatient. I am not clear if that has been completed as yet. Review of Systems Review of Systems: Cardiac-positive for chest pain and palpitations. Chronic shortness of breath. Chronic leg swelling. Remainder of the 10 system review is negative. [facility] Past Medical History Medical History CHF (congestive heart failure) Diabetes Endometrial hyperplasia History of CO (myocardial infarction) HTN (hypertension) Pancreatitis Family History Pertinent family history: Positive for diabetes. Social History Social History Household Members: Children Housing: Apartment Do you presently have visiting nurse or other home services: Yes Alcohol intake: never Smoking Status: Former smoker Smoked in Last 30 Days: No Use of substances other than those prescribed or required for medical reasons: No Currently Displaying Signs/Symptoms of Drug Intoxication Withdrawal: No Have you been hit, kicked, punched, or otherwise hurt by someone within the past year? If so, by whom?: No Do you feel safe in your current relationship?: No Is there a partner from a previous relationship who is making you feel unsafe now?: No Are you made to feel afraid or neglected: No (reports falling 6 times recently) [employer]ian[employer] Healthcare Practices: jew lutheran Advance Directives: No Advance Directives Information Provided: Yes Do you have thoughts of harming others: None Do you have a plan to hurt others: No Plan Recently lost weight without trying: Unsure Meds Allergies Allergy/AdvReac Type Severity Reaction Status Date / Time No Known Allergies Allergy Mild NOT Unverified 06/17/20 15:19 APPLICABLE statins Allergy Unknown myositis Uncoded 12/30/19 00:00 Physical Exam Vital Signs: Vital Signs: Vital Signs Temp Pulse Resp BP Pulse Ox 07/11/20 11:55 98 F 84 20 150/72 H 96 07/11/20 11:12 98 F 84 20 190/78 H 94 07/11/20 07:45 98 F 84 18 140/64 H 96 07/11/20 07:11 98 F 87 20 145/60 H 96 07/11/20 04:00 98.3 F 83 18 149/64 H 97 07/11/20 02:19 80 140/65 H 07/11/20 01:04 97.8 F 60 18 153/72 H 100 07/11/20 00:00 98.7 F 72 17 139/53 L 07/10/20 22:49 69 16 144/64 H 07/10/20 20:40 70 16 142/64 H 07/10/20 19:37 16 07/10/20 19:32 79 16 151/70 H 100 07/10/20 16:36 100.0 F 93 20 199/90 H 99 Body Mass Index 42.8 Comfortable, no distress No pallor, icterus or cyanosis HEENT -unremarkable JVD- normal Cardiac- normal heart sounds, no murmurs, gallops or rubs, normal PMI Respiratory-normal breath sounds bilaterally, no crackles, no wheeze Abdomen- soft, nontender Neuro- alert and oriented Lower extremities- Mild leg edema, warm well perfused Results Labs and Meds Result diagrams: 07/11/20 06:38 07/11/20 06:38 Lab results: Laboratory Results - last 24 hr 07/10/20 07/10/20 07/10/20 18:29 18:29 18:29 WBC 5.7 RBC 3.34 L Hgb 10.3 L Hct 32.0 L MCV 95.8 MCH 30.8 MCHC 32.2 RDW 13.3 Plt Count 120 L MPV 11.4 Immature Gran % (Auto) 0.4 Neut % (Auto) 57.4 Lymph % (Auto) 27.4 [place] % (Auto) 9.9 Eos % (Auto) 4.2 H Baso % (Auto) 0.7 Lymph # (Auto) 1.6 [place] # (Auto) 0.6 Eos # (Auto) 0.2 Baso # (Auto) 0.0 Abs Immat Gran (auto) 0.02 Absolute Neuts (auto) 3.3 Absolute Nucleated RBC 0.000 Nucleated RBC % (auto) 0.0 Smear Tech's Comments VERIFIED PT 11.4 INR 1.0 Sodium Cancelled Potassium Cancelled Chloride Cancelled Carbon Dioxide Cancelled Anion Gap Cancelled BUN Cancelled Creatinine Cancelled Estim Creat Clear Calc Cancelled Estimated GFR Cancelled POC Glucose Random Glucose Cancelled Lactic Acid Calcium Cancelled Magnesium Cancelled Total Bilirubin Cancelled Direct Bilirubin Cancelled AST Cancelled ALT Cancelled Alkaline Phosphatase Cancelled Troponin I High Sens B-Natriuretic Peptide Total Protein Cancelled Albumin Cancelled Lipase Cancelled Blood Type Antibody Screen 07/10/20 07/10/20 07/10/20 18:29 18:29 18:59 WBC RBC Hgb Hct MCV MCH MCHC RDW Plt Count MPV Immature Gran % (Auto) Neut % (Auto) Lymph % (Auto) [place] % (Auto) Eos % (Auto) Baso % (Auto) Lymph # (Auto) [place] # (Auto) Eos # (Auto) Baso # (Auto) Abs Immat Gran (auto) Absolute Neuts (auto) Absolute Nucleated RBC Nucleated RBC % (auto) Smear Tech's Comments PT INR Sodium Potassium Chloride Carbon Dioxide Anion Gap BUN Creatinine Estim Creat Clear Calc Estimated GFR POC Glucose Random Glucose Lactic Acid 1.3 Calcium Magnesium Total Bilirubin Direct Bilirubin AST ALT Alkaline Phosphatase Troponin I High Sens 44.6 H B-Natriuretic Peptide 113 H Total Protein Albumin Lipase Blood Type O Positive Antibody Screen NEGATIVE 07/10/20 07/11/20 07/11/20 19:15 00:17 00:42 WBC RBC Hgb Hct MCV MCH MCHC RDW Plt Count MPV Immature Gran % (Auto) Neut % (Auto) Lymph % (Auto) [place] % (Auto) Eos % (Auto) Baso % (Auto) Lymph # (Auto) [place] # (Auto) Eos # (Auto) Baso # (Auto) Abs Immat Gran (auto) Absolute Neuts (auto) Absolute Nucleated RBC Nucleated RBC % (auto) Smear Tech's Comments PT INR Sodium 140 Potassium 3.5 Chloride 105 Carbon Dioxide 28 Anion Gap 11 L BUN 19 H Creatinine 0.86 Estim Creat Clear Calc 86.8 Estimated GFR > 60 POC Glucose 57 L* Random Glucose 187 H Lactic Acid Calcium 8.2 L Magnesium 1.9 Total Bilirubin 0.4 Direct Bilirubin < 0.2 AST 24 ALT 13 Alkaline Phosphatase 197 H Troponin I High Sens 58.3 H B-Natriuretic Peptide Total Protein 5.9 L Albumin 2.6 L Lipase 11 Blood Type Antibody Screen 07/11/20 07/11/20 07/11/20 01:14 02:31 03:52 WBC RBC Hgb Hct MCV MCH MCHC RDW Plt Count MPV Immature Gran % (Auto) Neut % (Auto) Lymph % (Auto) [place] % (Auto) Eos % (Auto) Baso % (Auto) Lymph # (Auto) [place] # (Auto) Eos # (Auto) Baso # (Auto) Abs Immat Gran (auto) Absolute Neuts (auto) Absolute Nucleated RBC Nucleated RBC % (auto) Smear Tech's Comments PT INR Sodium Potassium Chloride Carbon Dioxide Anion Gap BUN Creatinine Estim Creat Clear Calc Estimated GFR POC Glucose 47 L* 178 H 197 H Random Glucose Lactic Acid Calcium Magnesium Total Bilirubin Direct Bilirubin AST ALT Alkaline Phosphatase Troponin I High Sens B-Natriuretic Peptide Total Protein Albumin Lipase Blood Type Antibody Screen 07/11/20 07/11/20 07/11/20 05:23 06:14 06:38 WBC 5.0 RBC 3.16 L Hgb 9.8 L Hct 31.2 L MCV 98.7 H MCH 31.0 MCHC 31.4 RDW 13.5 Plt Count 104 L MPV 12.2 Immature Gran % (Auto) 0.2 Neut % (Auto) 75.8 H Lymph % (Auto) 9.0 L [place] % (Auto) 9.2 Eos % (Auto) 5.4 H Baso % (Auto) 0.4 Lymph # (Auto) 0.5 L [place] # (Auto) 0.5 Eos # (Auto) 0.3 Baso # (Auto) 0.0 Abs Immat Gran (auto) 0.01 Absolute Neuts (auto) 3.8 Absolute Nucleated RBC 0.000 Nucleated RBC % (auto) 0.0 Smear Tech's Comments VERIFIED PT INR Sodium Potassium Chloride Carbon Dioxide Anion Gap BUN Creatinine Estim Creat Clear Calc Estimated GFR POC Glucose 187 H 181 H Random Glucose Lactic Acid Calcium Magnesium Total Bilirubin Direct Bilirubin AST ALT Alkaline Phosphatase Troponin I High Sens B-Natriuretic Peptide Total Protein Albumin Lipase Blood Type Antibody Screen 07/11/20 07/11/20 07/11/20 06:38 07:21 11:38 WBC RBC Hgb Hct MCV MCH MCHC RDW Plt Count MPV Immature Gran % (Auto) Neut % (Auto) Lymph % (Auto) [place] % (Auto) Eos % (Auto) Baso % (Auto) Lymph # (Auto) [place] # (Auto) Eos # (Auto) Baso # (Auto) Abs Immat Gran (auto) Absolute Neuts (auto) Absolute Nucleated RBC Nucleated RBC % (auto) Smear Tech's Comments PT INR Sodium 142 Potassium 3.8 Chloride 105 Carbon Dioxide 30 H Anion Gap 11 L BUN 19 H Creatinine 1.02 Estim Creat Clear Calc 73.2 Estimated GFR 56 POC Glucose 189 H 202 H Random Glucose 205 H Lactic Acid Calcium 8.0 L Magnesium Total Bilirubin Direct Bilirubin AST ALT Alkaline Phosphatase Troponin I High Sens B-Natriuretic Peptide Total Protein Albumin Lipase Blood Type Antibody Screen Cardiology Testing Stress Test: report reviewed Echo: report reviewed Cardiac cath: report reviewed EKG Interpretation EKG Comments: EKG was reviewed. Underlying rhythm was sinus at 80/Min. No significant ST-T changes. QTc appears prolonged at 486 milliseconds pain Assessment and Plan (1) CAD (coronary artery disease): Qualifiers: Coronary Disease-Associated Artery/Lesion type: [place] artery [place] vs. transplanted heart: apache heart Associated angina: with stable angina Qualified Code(s): I25.118 - Atherosclerotic heart disease of [place] coronary artery with other forms of angina pectoris Status: Acute (2) HTN (hypertension): Qualifiers: Hypertension type: essential hypertension Qualified Code(s): I10 - Essential (primary) hypertension Status: Acute (3) Diabetes: Qualifiers: Diabetes mellitus type: type 2 Diabetes mellitus technician terminal and repeater insulin use: with [place] [facility] use Diabetes mellitus complication status: with other specified complication Qualified Code(s): E11.69 - Type 2 diabetes mellitus with other specified complication; Z79.4 - exterminator (current) use of insulin Status: Acute [place] based on cardiac catheterization from 2016, she had only mild to m oderate disease and there were no obstructive lesions. Symptoms could be from angina based on her numerous risk factors. Her blood pressure seems quite high. We need to 1st optimize that. Otherwise she has already been scheduled for outpatient stress test and we can try to keep that appointment.
[2020-07-11] MEDS: Insulin Lispro 100 UNIT/ML 3 ML VIAL SUBCUT ×3 (12:46→21:55)
[2020-07-11] MEDS: Ferrous Sulfate 324 MG TABLET.DR 325 MG PO (13:40)
[2020-07-11] MEDS: Flu Vacc QS2020-21(6mos up)/PF 0.5 ML SYRINGE IM (13:41)
[2020-07-11] MEDS: Megestrol Acetate 20 MG TABLET 80 MG PO ×2 (13:41→20:06)
[2020-07-11 16:06] LABS: Glucose, Whole Blood 255 mg/dL (60-115)
--- NOTE | 2020-07-11 16:29 | P.PNIM_ITS ---
Subjective Subjective Date of Service: 07/11/20 Interval History: seen and examined with gluing machine adjuster services denies any chest pain Review of Systems General - no fevers or chills Cardiovascular - no chest pain Respiratory - no shortness of breath or cough Abdominal- no abdominal pain, nausea, vomiting, diarrhea gu - bleeding Physical Exam Vital Signs: Vital Signs: Vital Signs Temp Pulse Resp BP Pulse Ox 07/11/20 15:27 98.6 F 84 18 164/61 H 100 07/11/20 11:55 98 F 84 20 150/72 H 96 07/11/20 11:12 98 F 84 20 190/78 H 94 07/11/20 07:45 98 F 84 18 140/64 H 96 07/11/20 07:11 98 F 87 20 145/60 H 96 07/11/20 04:00 98.3 F 83 18 149/64 H 97 07/11/20 02:19 80 140/65 H 07/11/20 01:04 97.8 F 60 18 153/72 H 100 07/11/20 00:00 98.7 F 72 17 139/53 L 07/10/20 22:49 69 16 144/64 H 07/10/20 20:40 70 16 142/64 H 07/10/20 19:37 16 07/10/20 19:32 79 16 151/70 H 100 07/10/20 16:36 100.0 F 93 20 199/90 H 99 Body Mass Index 42.8 General - no acute distress, appears comfortable Cardiovascular - regular rate and rhythm, S1-S2 Lungs - normal respiratory effort, clear to auscultation bilaterally, no wheezing or rales Abdomen - soft, nontender, no rebound regarding Extremities - +edema Neuro - awake and alert, no focal deficits Objective Data Current Medications Generic Name Dose Route Start Last Admin Trade Name Freq PRN Reason Stop Dose Admin Acetaminophen 650 mg 07/11/20 00:31 Acetaminophen 650 Mg Supp.Rect NV Q6H PRN Pain, Mild (Pain Scale 1-3) Al Hydroxide/Mg Hydroxide 15 ml 07/11/20 01:13 Magnesium Hydrox/Alum Hydrox 30 Ml Oral.Susp PO Q6H PRN Heartburn Docusate Sodium 100 mg 07/11/20 00:31 Docusate Sodium 100 Mg Capsule PO DAILY PRN Constipation Ferrous Sulfate 325 mg 07/11/20 10:15 07/11/20 13:40 Ferrous Sulfate 324 Mg Tablet. PO 324 mg DAILY AUTUMN Administration Insulin Human Lispro 0 unit 07/11/20 07:30 07/11/20 12:46 Insulin Lispro 100 Unit/Ml 3 Ml Vial SUBCUT 4 unit QIDACHS [facility] Administration Protocol Megestrol Acetate 80 mg 07/11/20 10:15 07/11/20 13:41 Megestrol Acetate 20 Mg Tablet PO 80 mg BID AUTUMN Administration Nitroglycerin 0.4 mg 07/11/20 01:13 07/11/20 02:19 Nitroglycerin 0.4 Mg Tab.Subl SUBLINGUAL 0.4 mg Q5M PRN Administration Chest Pain Ondansetron HCl 4 mg 07/11/20 00:31 Ondansetron Hcl 4 Mg/2 Ml Vial IVPUSH Q8H PRN Nausea and Vomiting Oxycodone HCl 10 mg 07/11/20 01:52 07/11/20 13:39 Oxycodone Hcl Immed Release 5 Mg Tablet PO 10 mg Q6H PRN Administration Pain, Severe (Pain Scale 7-10) Sodium Chloride 3 ml 07/11/20 00:31 07/11/20 15:27 0.9 % Sodium Chloride Flush 3 Ml Syringe IVFLUSH 3 ml QSHIFT [facility] Administration Labs CBC & Chem 7: 07/11/20 06:38 07/11/20 06:38 Assessment and Plan (1) Vaginal bleeding: Status: Acute (2) Chest pain: Status: Acute Assessment and Plan: this is a 54-year-old female with multiple medical issues who presents to the hospital with complaints of chest pain and vaginal bleeding. She is admitted for further workup 1. chest pain High sensitivity troponin flat Chest pain resolved Question if related to patient's known CAD plus hypertension which was present on the arrival Med rec is not completed, needs to be done so home meds can be continued Cardiology input appreciated 2. vaginal bleeding H&H remains stable Hemodynamically stable as well, no need for transfusion at this time OBGYN input appreciated, patient's case was discussed by Ob with her outpatient OBGYN Dr. Presley at [facility] who clarified that the patient does not have endometrial cancer. Previously they had been a plan for hysterectomy, however due to patient's known CAD amongst other medical issues this has been put off indefinitely. Megace which she has been on at home has been started by Ob Continue iron sulfate 3. chronic respiratory failure with hypoxia continue her O2 4. Hypertension Uncontrolled Potential cause for her anginal symptoms Once med rec is completed, will continue medications 5.COPD Not in exacerbation Continue inhalers as needed Continue remainder of home meds as appropriate once patient's med rec has been completed
[2020-07-11] MEDS: lisinopriL 10 MG TABLET PO (19:51)
[2020-07-11] MEDS: carvediloL 12.5 MG TABLET PO (20:06)
[2020-07-11] MEDS: Gabapentin 300 MG CAPSULE PO (20:06)
[2020-07-11] MEDS: diphenhydrAMINE HCL 25 MG TABLET PO (20:46)
[2020-07-11 21:30] LABS: Glucose, Whole Blood 265 mg/dL (60-115)
[2020-07-11] MEDS: diphenhydrAMINE HCL 50 MG/ML VIAL 25 MG IVPUSH (22:16)
[2020-07-12] VITALS (10 sets, daily range): BP systolic 156–180; BP diastolic 58–77; PULSE 71–88; RESP 16–22; TEMP 36.6–36.9; O2SAT 98–100; BMI 44.8
--- NOTE | 2020-07-12 04:57 | PC.NURSE ---
07/11/20201999- pt states she is itchy, visibly itching systemically, pt states this is normal for her and she takes benadryl TID at home. Bneadryl requested, placed order for q8hr prn, one dose administered, ineffective after one hour, notified, one time 25mg IV benadryl ordered and administered, effective, no itching noted after administration. 07/12/2020 0117: pt bp 160/90 notified, no new orders.
[2020-07-12] MEDS: Omeprazole 40 MG CAPSULE.DR PO (06:26)
[2020-07-12 06:40] LABS: MANUAL DIFF FLAG NO
[2020-07-12] MEDS: diphenhydrAMINE HCL 25 MG TABLET PO ×2 (06:42→14:09)
[2020-07-12 07:08] LABS: Basophils Percent Auto 0.6 % (0-2); Eosinophils Absolute Auto 0.4 X10*3/uL (0.0-0.4); Eosinophils Percent Auto 7.3 % (0-4); Hematocrit 32.6 % (37-47); Hemoglobin 10.3 g/dl (12.0-16.0); Imm Gran Abs Auto 0.01 X10*3/uL (0.00-0.03); Imm Gran Pct Auto 0.2 % (0.0-0.4); Lymphocytes Absolute Auto 1.6 X10*3/uL (1.2-4.9); Lymphocytes Percent Auto 33.1 % (20-40); Mean Corpuscular HGB Conc 31.6 g/dl (31.0-35.0); Mean Corpuscular Hemoglobin 30.8 pg (27.0-33.0); Mean Corpuscular Volume 97.6 fL (80-98); Mean Platelet Volume 12.2 fL (9.4-12.3); Monocytes Absolute Auto 0.4 X10*3/uL (0.1-1.2); Monocytes Percent Auto 7.5 % (2-11); Neutrophils Absolute Auto 2.5 X10*3/uL (2.0-8.3); Neutrophils Percent Auto 51.3 % (45-73); Platelet Count 121 X10*3/uL (160-400); Red Blood Count 3.34 X10*6/uL (4.20-5.50); Red Cell Distribution Width 13.4 % (11.0-16.0); White Blood Count 4.9 X10*3/uL (4.8-10.8)
[2020-07-12 07:38] LABS: Glucose, Whole Blood 225 mg/dL (60-115)
[2020-07-12] MEDS: Insulin Lispro 100 UNIT/ML 3 ML VIAL SUBCUT ×2 (08:29→12:27)
[2020-07-12] MEDS: carvediloL 12.5 MG TABLET PO (08:29)
[2020-07-12] MEDS: Theophylline Anhydrous ER 300 MG TAB.ER.12H PO (08:30)
[2020-07-12] MEDS: Furosemide 20 MG TABLET PO (08:30)
[2020-07-12] MEDS: Isosorbide Mononitrate 60 MG TAB.ER.24H 120 MG PO (08:30)
[2020-07-12] MEDS: Gabapentin 300 MG CAPSULE PO ×2 (08:30→14:08)
[2020-07-12] MEDS: lisinopriL 10 MG TABLET PO (08:30)
[2020-07-12] MEDS: buPROPion HCl XL 300 MG TAB.ER.24H PO (08:31)
[2020-07-12] MEDS: FLUoxetine HCl 10 MG CAPSULE PO (08:31)
[2020-07-12] MEDS: Megestrol Acetate 20 MG TABLET 80 MG PO (08:31)
[2020-07-12] MEDS: Ferrous Sulfate 324 MG TABLET.DR 325 MG PO (08:31)
[2020-07-12] MEDS: 0.9 % Sodium Chloride Flush 3 ML SYRINGE IVFLUSH ×2 (08:32)
[2020-07-12 12:03] LABS: Glucose, Whole Blood 255 mg/dL (60-115)
--- NOTE | 2020-07-12 12:20 | P.PNCA_ITS ---
Subjective Subjective Interval history: seen and examined patient. She has some intermittent chest pains but not clear if it is anginal vs non-cardiac as she is very vague about it. Possibly anginal related to high blood pressures. Review of Systems Review of Systems cardiac-positive for chest pains. Short of breath is at baseline. No palpitations, dizzy spells or syncopal episodes. Remainder of the 10 system review is negative. Physical Exam Vital Signs: Vital Signs Temp Pulse Resp BP Pulse Ox 07/12/20 11:46 98.2 F 78 16 156/64 H 98 07/12/20 08:30 83 180/77 H 07/12/20 08:29 83 180/77 H 07/12/20 07:13 98 F 83 22 H 180/77 H 100 07/12/20 07:10 97.9 F 84 22 H 180/77 H 100 07/12/20 03:49 98.2 F 78 18 160/58 H 100 07/12/20 03:41 98.2 F 78 18 160/58 H 100 07/12/20 00:00 98.4 F 88 20 160/62 H 100 07/11/20 20:06 83 131/53 L 07/11/20 20:00 99.7 F 83 20 131/53 L 100 07/11/20 19:51 84 164/61 H 07/11/20 16:00 98.6 F 84 18 164/61 H 100 07/11/20 15:27 98.6 F 84 18 164/61 H 100 Body Mass Index 44.8 Comfortable, no distress No pallor, icterus or cyanosis HEENT -unremarkable JVD- normal Cardiac- normal heart sounds, no murmurs, gallops or rubs, normal PMI Respiratory-normal breath sounds bilaterally, no crackles, no wheeze Abdomen- soft, nontender Neuro- alert and oriented Lower extremities- Mild leg edema, warm well perfused Progress Note: A&P Assessment and plan (1) CAD (coronary artery disease): Status: Acute (2) HTN (hypertension): Status: Acute (3) Diabetes: Status: Acute Assessment and Plan: Sch[place] based on cardiac catheterization from 2016, she had only mild to moderate disease and there were no obstructive lesions. Symptoms could be from angina based on her numerous risk factors. Her blood pressure seems quite high. We need to 1st optimize that. Agree with increasing carvedilol dosing. Next step will be to add amlodipine. Otherwise she has already been scheduled for outpatient stress test and we can try to keep that appointment. Fall Risk Details Current Medications: Current Medications Generic Name Dose Route Start Last Admin Trade Name Freq PRN Reason Stop Dose Admin Acetaminophen 650 mg 07/11/20 00:31 Acetaminophen 650 Mg Supp.Rect ND Q6H PRN Pain, Mild (Pain Scale 1-3) Al Hydroxide/Mg Hydroxide 15 ml 07/11/20 01:13 Magnesium Hydrox/Alum Hydrox 30 Ml Oral.Susp PO Q6H PRN Heartburn Bupropion HCl 300 mg 07/12/20 09:00 07/12/20 08:31 Bupropion Hcl Xl 300 Mg Tab.Er.24h PO 300 mg DAILY AUTUMN Administration Carvedilol 18.75 mg 07/12/20 21:00 Carvedilol 12.5 Mg Tablet PO BID AUTUMN Protocol Diphenhydramine HCl 25 mg 07/11/20 20:22 07/12/20 06:42 Diphenhydramine Hcl 25 Mg Tablet PO 25 mg Q8H PRN Administration Itching Docusate Sodium 100 mg 07/11/20 00:31 Docusate Sodium 100 Mg Capsule PO DAILY PRN Constipation Ferrous Sulfate 325 mg 07/11/20 10:15 07/12/20 08:31 Ferrous Sulfate 324 Mg Tablet.Dr PO 325 mg DAILY AUTUMN Administration Fluoxetine HCl 10 mg 07/12/20 09:00 07/12/20 08:31 Fluoxetine Hcl 10 Mg Capsule PO 10 mg DAILY AUTUMN Administration Furosemide 20 mg 07/12/20 09:00 07/12/20 08:30 Furosemide 20 Mg Tablet PO 20 mg BID@0900,1800 AUUTMN Administration Protocol Gabapentin 300 mg 07/11/20 21:00 07/12/20 08:30 Gabapentin 300 Mg Capsule PO 300 mg TID AUTUMN Administration Insulin Human Lispro 0 unit 07/11/20 07:30 07/12/20 08:29 Insulin Lispro 100 Unit/Ml 3 Ml Vial SUBCUT 4 unit QIDACHS AUTUMN Administration Protocol Isosorbide Mononitrate 120 mg 07/12/20 09:00 07/12/20 08:30 Isosorbide Mononitrate 60 Mg Tab.Er.24h PO 120 mg DAILY AUTUMN Administration Protocol Lisinopril 10 mg 07/12/20 09:00 07/12/20 08:30 Lisinopril 10 Mg Tablet PO 10 mg DAILY AUTUMN Administration Protocol Megestrol Acetate 80 mg 07/11/20 10:15 07/12/20 08:31 Megestrol Acetate 20 Mg Tablet PO 80 mg BID AUTUMN Administration Nitroglycerin 0.4 mg 07/11/20 01:13 07/11/20 02:19 Nitroglycerin 0.4 Mg Tab.Subl SUBLINGUAL 0.4 mg Q5M PRN Administration Chest Pain Omeprazole 40 mg 07/12/20 06:30 07/12/20 06:26 Omeprazole 40 Mg Capsule.Dr PO 40 mg DAILY@0630 AUTUMN Administration Ondansetron HCl 4 mg 07/11/20 00:31 Ondansetron Hcl 4 Mg/2 Ml Vial IVPUSH Q8H PRN Nausea and Vomiting Oxycodone HCl 10 mg 07/11/20 01:52 07/11/20 13:39 Oxycodone Hcl Immed Release 5 Mg Tablet PO 10 mg Q6H PRN Administration Pain, Severe (Pain Scale 7-10) Pharmacy Consult 1 each 07/11/20 16:37 Consult Rx Perform Med Rec MISCELLANE ONCE PRN Consult order Sodium Chloride 3 ml 07/11/20 00:31 07/12/20 08:32 0.9 % Sodium Chloride Flush 3 Ml Syringe IVFLUSH 3 ml QSHIFT AUTUMN Administration Theophylline 300 mg 07/12/20 09:00 07/12/20 08:30 Theophylline Anhydrous Er 300 Mg Tab.Er.12h PO 300 mg DAILY AUTUMN Administration Time Spent With Patient Time: Total time spent is greater than 50% in coordination of care (as documented) at patient's floor/unit and/or counseling patient: Time with patient: 15 - 24 minutes
[2020-07-12] MEDS: carvediloL 6.25 MG TABLET PO (12:28)
[2020-07-12] MEDS: oxyCODONE HCl Immed Release 5 MG TABLET 10 MG PO (14:09)
--- NOTE | 2020-07-12 15:47 | MHC.CM.PN ---
WASTE EXAMINER completed with pt with the help of a vice president of procurement. Pt reports she is supposed to live alone but her son stays with her most of the time. Pt reports she has daily VNA services morning and evening and a nurse that comes in daily through [facility]. Pt Is oxygen dependent and uses a wheelchair for mobility. Pt will discharge home today with resumption of services. She will be transported via [facility]
--- NOTE | 2020-07-12 16:07 | PM.DS ---
DS: Providers Provider Date of admission: 07/10/20 23:13 Primary care physician: Unknown Physician Consults: 07/11/20 00:31 Consult to Cardiology Routine Consulting Provider: Jarvis Mares Reason for consultation: Elevated trop, typical chest pain, Has provider been notified: No 07/11/20 06:55 Consult to Obstetrics / Gynecology Routine Consulting Provider: Katia Crockett Reason for consultation: vaginal bleed DS: Diagnosis Discharge Diagnosis (1) Acute blood loss anemia: Status: Acute (2) CAD (coronary artery disease): Status: Acute (3) HTN (hypertension): Status: Acute (4) Diabetes: Status: Acute (5) Vaginal bleeding: Status: Acute DS: Summary Hospital Course Hospital Course: patient presented with chest pain as well as vaginal bleeding. She was seen both by Cardiology and OBGYN. For her chest pain high sensitivity troponin I were checked which remained flat. Her EKG did not show any new ischemic findings. Her chest pains resolved when her blood pressure improved and so this was felt to be the cause. Her antihypertensive regimen was changed -- Coreg was increased from 12.5 mg to 18. 75 mg twice daily. In terms of her vaginal bleeding, this appeared to be slow/minimal. Her H&H remained stable in the hospital. She was seen by OBGYN who discussed the case with the patient's own wood room hand. Megace was recommended and Iron as well which were both started in the hospital and the patient will be discharged home on. She is to follow-up with her own wood room hand for further management. However it appears that given her advanced cardiac disease she is unlikely a surgical candidate and apparently this has been put off indefinitely. In regards to the patient's aspirin and Plavix, given that her vaginal bleeding was mild/minimal ( based off of her stable H&H) risks and benefits were discussed with her and ultimately decision was made to continue both of these. Should the bleeding become more perfuse she is to return to the hospital and also stop aspirin Plavix in the meantime. Time Spent with Patient Time attestation: Total time spent providing and/or coordinating discharge services: Physical Exam Vital Signs: Vital Signs: Vital Signs Temp Pulse Resp BP Pulse Ox 07/12/20 15:20 98.5 F 71 18 157/63 H 100 07/12/20 12:28 78 156/64 H 07/12/20 11:46 98.2 F 78 16 156/64 H 98 07/12/20 08:30 83 180/77 H 07/12/20 08:29 83 180/77 H 07/12/20 07:13 98 F 83 22 H 180/77 H 100 07/12/20 07:10 97.9 F 84 22 H 180/77 H 100 07/12/20 03:49 98.2 F 78 18 160/58 H 100 07/12/20 03:41 98.2 F 78 18 160/58 H 100 07/12/20 00:00 98.4 F 88 20 160/62 H 100 07/11/20 20:06 83 131/53 L 07/11/20 20:00 99.7 F 83 20 131/53 L 100 07/11/20 19:51 84 164/61 H Body Mass Index 44.8 General - no acute distress, appears comfortable Cardiovascular - regular rate and rhythm, S1-S2 Lungs - normal respiratory effort, clear to auscultation bilaterally, no wheezing Abdomen - soft, nontender, no rebound regarding Extremities - no edema bilaterally Neuro - awake and alert, no focal deficits DS: Data Data Completed and Pending Labs on day of discharge: Labs from last 24 hours 07/12/20 07/12/20 07/12/20 11:49 07:28 05:47 WBC 4.9 RBC 3.34 L Hgb 10.3 L Hct 32.6 L MCV 97.6 MCH 30.8 MCHC 31.6 RDW 13.4 Plt Count 121 L MPV 12.2 Immature Gran % (Auto) 0.2 Neut % (Auto) 51.3 Lymph % (Auto) 33.1 [place] % (Auto) 7.5 Eos % (Auto) 7.3 H Baso % (Auto) 0.6 Lymph # (Auto) 1.6 [place] # (Auto) 0.4 Eos # (Auto) 0.4 Baso # (Auto) 0.0 Abs Immat Gran (auto) 0.01 Absolute Neuts (auto) 2.5 Absolute Nucleated RBC 0.000 Nucleated RBC % (auto) 0.0 POC Glucose 255 H 225 H 07/11/20 07/11/20 21:19 15:53 WBC RBC Hgb Hct MCV MCH MCHC RDW Plt Count MPV Immature Gran % (Auto) Neut % (Auto) Lymph % (Auto) [place] % (Auto) Eos % (Auto) Baso % (Auto) Lymph # (Auto) [place] # (Auto) Eos # (Auto) Baso # (Auto) Abs Immat Gran (auto) Absolute Neuts (auto) Absolute Nucleated RBC Nucleated RBC % (auto) POC Glucose 265 H 255 H Preliminary micro results at discharge 07/10/20 18:59 Blood Culture - Preliminary Blood - Venous Coagulase-neg Staphyloccocus 07/10/20 18:29 Blood Culture - Preliminary Blood - Venous No growth after 24 hours. Discharge Plan Discharge Patient Disposition: Home Health Service Referrals: [facility] [Outside] Jarvis Mares MD [Physician] - (Follow up for your stress paint. ) Physician,Unknown [Primary Care Provider] - Discharge Medications: New megestrol 20 mg Tablet 80 mg PO BID Qty: 60 RF: 0 ferrous sulfate 324 mg (65 mg iron) Tablet,Delayed Release (Dr/Ec) 325 mg PO DAILY Qty: 30 RF: 0 carvedilol [Coreg] 12.5 mg tablet 12.5 mg PO Q12H Qty: 60 RF: 0 carvedilol [Coreg] 6.25 mg tablet 6.25 mg PO BID Qty: 60 RF: 0 Continued Aspirin 81 mg tablet 81 mg PO DAILY RF: 0 bupropion HCl 150 mg tablet 150 mg PO BID RF: 0 clopidogrel 75 mg tablet 75 mg PO DAILY RF: 0 Colace 100 mg capsule 100 mg PO BID RF: 0 fluoxetine 10 mg tablet 10 mg PO DAILY RF: 0 furosemide 20 mg tablet 20 mg PO BID RF: 0 gabapentin 300 mg capsule 300 mg PO TID RF: 0 isosorbide mononitrate 120 mg PO DAILY RF: 0 lisinopril 10 mg PO DAILY RF: 0 Protonix 40 mg PO DAILY RF: 0 rosuvastatin 5 mg PO DAILY RF: 0 theophylline 300 mg PO DAILY RF: 0 Vitamin D3 tablet 125 mg PO DAILY RF: 0 Benadryl 25 mg PO NEEDED RF: 0 oxycodone 10 mg PO NEEDED RF: 0 Discontinued Coreg 12.5 mg tablet 12.5 mg DAILY RF: 0 Discharge Orders: Discharge Order (Routine); Ordered 07/12/20 Ordered By: Refugio Moser Diet: advance to your usual diet Activity on Discharge: As tolerated Visit Report Forms: Patient Portal Discharge page Care Plan Goals: To follow up with cardiology for stress test To take megace and iron for my anemia / bleeding Health Concerns: Vaginal bleeding CAD Plan of Treatment: Follow up with cardiology clinic for stress test Take iron and megace for your vaginal bleeding / anemia. Follow up with your [facility] [employer] doctors.
[2020-07-12 16:11] LABS: Glucose, Whole Blood 267 mg/dL (60-115)
== END 2020-07-12 17:11 | disposition home health service (06) | DRG 532 ==
LOC: HO.ED 23:07 → HO.IMC 23:42
PROVIDERS: Nurse Practitioner Family; Admitting Provider Internal Medicine; Emergency Provider Emergency Medicine Emergency Medical Services; Visit Provider Family Medicine
DX: N93.9 Abnormal uterine and vaginal bleeding, unspecified (principal); I50.23 Acute on chronic systolic (congestive) heart failure; J96.11 Chronic respiratory failure with hypoxia; Z99.81 Dependence on supplemental oxygen; D62 Acute posthemorrhagic anemia; I25.2 Old myocardial infarction; Z23 Encounter for immunization; Z96.643 Presence of artificial hip joint, bilateral; C54.9 Malignant neoplasm of corpus uteri, unspecified; Z91.19 Patient's noncompliance with other medical treatment and regimen; I11.0 Hypertensive heart disease with heart failure; E11.9 Type 2 diabetes mellitus without complications; I25.118 Atherosclerotic heart disease of native coronary artery with other forms of angina pectoris; Z87.891 Personal history of nicotine dependence; Z79.02 Long term (current) use of antithrombotics/antiplatelets; Z79.82 Long term (current) use of aspirin; Z79.899 Other long term (current) drug therapy
CPT/HCPCS: 36415; 71045; 71250; 74176; 76856; 80048; 80076; 82947; 83605; 83690; 83735; 83880; 84484; 85025; 85610; 86850; 86900; 86901; 87040; 87147; 90686; 93005; 96361; 96374; 96375; 96376; 99285; 99291; J1170; J1200; J2405; J2765; Q0163

== ENCOUNTER 2020-07-26 20:38 | Emergency (ER) | payer MEDICAID, SELFPAY ==
[2020-07-26 20:50] VITALS: BP 160/88; BP 161/77; PULSE 86; PULSE 92; RESP 18; TEMP 36.9; O2SAT 96; O2SAT 99; BMI 47.0
[2020-07-26 21:16] VITALS: BP 161/77; PULSE 94; TEMP 36.6; O2SAT 96
--- NOTE | 2020-07-26 21:37 | PC.NURSE ---
Patient asking for food and stating she is so hungry
[2020-07-26 21:46] LABS: Glucose, Whole Blood 19 mg/dL (60-115)
[2020-07-26 22:15] LABS: Glucose, Whole Blood 115 mg/dL (60-115)
--- NOTE | 2020-07-26 22:26 | ED_ITS ---
HPI - General Adult General Chief complaint: General Medical Stated complaint: HYPOGLYCEMIA Time Seen by Provider: 07/26/20 21:38 History of Present Illness HPI narrative: Patient is 54 years old long history of congestive heart failure, diabetes. Baseline on 85 units of insulin 3 times a day. Presented today with having miss her meal for both lunch and dinner. Patient was found very lethargic. Low nerve to have a very low sugar. Sent to the emergency department for further evaluation. In the emergency department his sugar was noted to be 19. Patient denies any chest pain any shortness of breath and dizziness. [place] profoundly weak. There is no nausea no vomiting. Patient denies any coughing congestion upper respiratory symptoms. Denies any urinary symptoms. Patient is from home. Patient has a home health aide. In addition to visiting nurse. The dose of patient's insulin is unchanged. Related Data Home Medications Medication Instructions Recorded Confirmed Benadryl 25 mg PO NEEDED 07/11/20 07/26/20 Colace 100 mg PO BID 07/11/20 07/26/20 Protonix 40 mg PO DAILY 07/11/20 07/26/20 Vitamin D3 125 mg PO DAILY 07/11/20 07/26/20 bupropion HCl 150 mg PO BID 07/11/20 07/26/20 clopidogrel 75 mg PO DAILY 07/11/20 07/26/20 fluoxetine 40 mg PO DAILY #0 07/11/20 07/26/20 furosemide 60 mg PO BID 07/11/20 07/26/20 gabapentin 300 mg PO TID 07/11/20 07/26/20 isosorbide mononitrate 120 mg PO DAILY 07/11/20 07/26/20 lisinopril 30 mg PO DAILY #0 07/11/20 07/26/20 rosuvastatin 5 mg PO DAILY 07/11/20 07/26/20 theophylline 300 mg PO BID 07/11/20 07/26/20 Previous Rx's Medication Instructions Recorded carvedilol [Coreg] 6.25 mg PO BID #60 tab 07/12/20 carvedilol [Coreg] 12.5 mg PO Q12H #60 tab 07/12/20 ferrous sulfate 325 mg PO DAILY #30 tab 07/12/20 Allergies Allergy/AdvReac Type Severity Reaction Status Date / Time No Known Allergies Allergy Mild NOT Unverified 06/17/20 15:19 APPLICABLE statins Allergy Unknown myositis Uncoded 12/30/19 00:00 Review of Systems Review of Systems: Constitutional: No Weight loss, No Fever, No Chills, No Night Sweats, positive fatigue ENT/Mouth: No Hearing loss, No Ear Pain, No Nasal Congestion, No Sinus Pain, No Hoarseness, No sore throat, No Rhinorrhea, No Swallowing Difficulty Eyes: No Eye Pain, No Swelling, No Redness, No Foreign Body, No Discharge, No Vision Changes Cardiovascular: No Chest Pain, No SOB, No Dyspnea on Exertion, No Orthopnea, No Edema, No Palpitations Respiratory: No Cough, No Sputum, No Wheezing, No Smoke Exposure, No Dyspnea Gastrointestinal: No Nausea, No Vomiting, No Diarrhea, No Constipation, No abdominal Pain, No Hematochezia, No Melena Genitourinary: no irregular bleeding, No Dysuria, No Urinary Frequency, No Hematuria, No Urinary Incontinence, No Urgency, No Flank Pain, No Urinary Flow Changes, No Hesitancy Musculoskeletal: No joint pain, No Myalgias, No Joint Swelling Skin: No Skin Lesions, No rash Neuro: No Weakness, No Numbness, No Paresthesias, No Loss of Consciousness, No Dizziness, No Headache Psych: No Anxiety/Panic, No Depression, No SI/HI/AH/VH, No Social Issues, Heme/Lymph: No Bruising, No Bleeding,No Lymphadenopathy Endocrine: No Polyuria, No Polydipsia, No Temperature Intolerance [facility] Past Medical History Medical History CAD (coronary artery disease) CHF (congestive heart failure) Diabetes Endometrial hyperplasia History of [place] (myocardial infarction) HTN (hypertension) Pancreatitis Precordial chest pain Yeast dermatitis Social History Social History Household Members: Children Housing: Apartment Alcohol intake: never Smoking Status: Smoker, status unknown Use of substances other than those prescribed or required for medical reasons: No Advance Directives: No Advance Directives Information Provided: Yes Physical Exam Vital Signs: Vital Signs: Vital Signs Temp Pulse Resp BP Pulse Ox 07/26/20 23:51 98.2 F 82 18 163/68 H 97 07/26/20 23:24 88 18 170/83 H 99 07/26/20 21:16 98 F 94 161/77 H 96 07/26/20 20:50 98.4 F 86 18 161/77 H 99 Body Mass Index 47.0 Appearance: Alert. Oriented X3. No acute distress. Eyes: Pupils equal, round and reactive to light. ENT: Pharynx normal. Neck: Normal inspection. Neck supple. No lymph nodes noted. No crepitus CVS: Normal heart rate and rhythm. Pulses normal. Normal S1 and S2 Respiratory: No respiratory distress. Breath sounds normal. No Wheezing. No rales Abdomen: Soft and nontender. No rigidity. No distention. good BS x4 Skin: Skin warm and dry. Normal skin color. Normal skin turgor. Extremities: No lower extremity edema. Neurovascular intact to all extremities. No Lacerations. No Rash Neuro: Oriented X 3. No motor deficit. No sensory deficit. Moving all extermities. No slurred speech Course Course Course Narrative: Will check patient's baseline labs. Will monitor patient's sugar every hour for the next 6 hours. Will encourage patient to eat. Will monitor closely. Medical Decision Making MDM Narrative Medical decision making narrative: Patient given food. Monitor in the emergency department. Sugar continued to drop. Started on a D5 drip. Will admit patient for observation overnight. Lab Data Result diagrams: 07/26/20 22:58 07/26/20 22:58 Labs: Lab Results 07/26/20 07/26/20 07/26/20 Range/Units 21:42 22:11 22:58 WBC 7.7 (4.8-10.8) X10*3/uL RBC 3.39 L (4.20-5.50) X10*6/uL Hgb 10.5 L (12.0-16.0) g/dl Hct 33.5 L (37-47) % MCV 98.8 H (80-98) fL MCH 31.0 (27.0-33.0) pg MCHC 31.3 (31.0-35.0) g/dl RDW 13.7 (11.0-16.0) % Plt Count 182 D (160-400) X10*3/uL MPV 11.6 (9.4-12.3) fL Immature Gran % (Auto) 0.3 (0.0-0.4) % Neut % (Auto) 76.2 H (45-73) % Lymph % (Auto) 14.1 L (20-40) % [place] % (Auto) 7.9 (2-11) % Eos % (Auto) 1.0 (0-4) % Baso % (Auto) 0.5 (0-2) % Lymph # (Auto) 1.1 L (1.2-4.9) X10*3/uL [place] # (Auto) 0.6 (0.1-1.2) X10*3/uL Eos # (Auto) 0.1 (0.0-0.4) X10*3/uL Baso # (Auto) 0.0 (0.0-0.2) X10*3/uL Abs Immat Gran (auto) 0.02 (0.00-0.03) X10*3/uL Absolute Neuts (auto) 5.9 (2.0-8.3) X10*3/uL Absolute Nucleated RBC 0.000 (0.0-0.012) X10*3/uL Nucleated RBC % (auto) 0.0 (0.0-0.2) /100WBC Sodium (135-145) mmol/L Potassium (3.3-5.1) mmol/l Chloride (96-108) mmol/L Carbon Dioxide (22-29) mmol/L Anion Gap (12-20) BUN (9-16) mg/dL Creatinine (0.5-1.4) mg/dL Estim Creat Clear Calc Estimated GFR POC Glucose 19 L* 115 (60-115) mg/dL Random Glucose (60-115) mg/dL Calcium (8.4-10.2) mg/dL 07/26/20 07/26/20 07/26/20 Range/Units 22:58 23:23 23:43 WBC (4.8-10.8) X10*3/uL RBC (4.20-5.50) X10*6/uL Hgb (12.0-16.0) g/dl Hct (37-47) % MCV (80-98) fL MCH (27.0-33.0) pg MCHC (31.0-35.0) g/dl RDW (11.0-16.0) % Plt Count (160-400) X10*3/uL MPV (9.4-12.3) fL Immature Gran % (Auto) (0.0-0.4) % Neut % (Auto) (45-73) % Lymph % (Auto) (20-40) % [place] % (Auto) (2-11) % Eos % (Auto) (0-4) % Baso % (Auto) (0-2) % Lymph # (Auto) (1.2-4.9) X10*3/uL [place] # (Auto) (0.1-1.2) X10*3/uL Eos # (Auto) (0.0-0.4) X10*3/uL Baso # (Auto) (0.0-0.2) X10*3/uL Abs Immat Gran (auto) (0.00-0.03) X10*3/uL Absolute Neuts (auto) (2.0-8.3) X10*3/uL Absolute Nucleated RBC (0.0-0.012) X10*3/uL Nucleated RBC % (auto) (0.0-0.2) /100WBC Sodium 142 (135-145) mmol/L Potassium 4.6 D (3.3-5.1) mmol/l Chloride 106 (96-108) mmol/L Carbon Dioxide 31 H (22-29) mmol/L Anion Gap 10 L (12-20) BUN 31 H D (9-16) mg/dL Creatinine 1.23 (0.5-1.4) mg/dL Estim Creat Clear Calc 64.1 Estimated GFR 45 POC Glucose 76 70 (60-115) mg/dL Random Glucose 92 D (60-115) mg/dL Calcium 8.2 L (8.4-10.2) mg/dL Discharge Plan Discharge Clinical Impression: Diabetes, Hypoglycemia Prescriptions: No Action bupropion HCl 150 mg tablet 150 mg PO BID RF: 0 clopidogrel 75 mg tablet 75 mg PO DAILY RF: 0 Colace 100 mg capsule 100 mg PO BID RF: 0 fluoxetine 20 mg Capsule 40 mg PO DAILY Qty: 0 RF: 0 furosemide 20 mg tablet 60 mg PO BID RF: 0 gabapentin 300 mg capsule 300 mg PO TID RF: 0 isosorbide mononitrate 120 mg PO DAILY RF: 0 lisinopril 30 mg Tablet 30 mg PO DAILY Qty: 0 RF: 0 Protonix 40 mg PO DAILY RF: 0 rosuvastatin 5 mg PO DAILY RF: 0 theophylline 300 mg PO BID RF: 0 Vitamin D3 tablet 125 mg PO DAILY RF: 0 Benadryl 25 mg PO NEEDED RF: 0 ferrous sulfate 324 mg (65 mg iron) Tablet,Delayed Release (Dr/Ec) 325 mg PO DAILY Qty: 30 RF: 0 carvedilol [Coreg] 12.5 mg tablet 12.5 mg PO Q12H Qty: 60 RF: 0 carvedilol [Coreg] 6.25 mg tablet 6.25 mg PO BID Qty: 60 RF: 0
--- NOTE | 2020-07-26 22:32 | XR_ITS ---
EXAMINATION: XR CHEST CLINICAL INFORMATION: Cough COMPARISON: None TECHNIQUE: Frontal view of the chest was obtained. FINDINGS: The lungs are well expanded. No dense consolidation. Bronchial wall thickening noted. Streaky retrocardiac opacity. No definite pleural effusion. No pneumothorax. The cardiomediastinal silhouette remains prominent. XR/XR chest 1V IMPRESSION: Bronchial wall thickening can be seen with a small airways process such as asthma or atypical/viral infection. Streaky retrocardiac opacity favors atelectasis. Cannot exclude pneumonia.
[2020-07-26 23:04] LABS: Basophils Percent Auto 0.5 % (0-2); Eosinophils Absolute Auto 0.1 X10*3/uL (0.0-0.4); Hematocrit 33.5 % (37-47); Hemoglobin 10.5 g/dl (12.0-16.0); Imm Gran Abs Auto 0.02 X10*3/uL (0.00-0.03); Imm Gran Pct Auto 0.3 % (0.0-0.4); Lymphocytes Absolute Auto 1.1 X10*3/uL (1.2-4.9); Lymphocytes Percent Auto 14.1 % (20-40); MANUAL DIFF FLAG NO; Mean Corpuscular HGB Conc 31.3 g/dl (31.0-35.0); Mean Corpuscular Volume 98.8 fL (80-98); Mean Platelet Volume 11.6 fL (9.4-12.3); Monocytes Absolute Auto 0.6 X10*3/uL (0.1-1.2); Monocytes Percent Auto 7.9 % (2-11); Neutrophils Absolute Auto 5.9 X10*3/uL (2.0-8.3); Neutrophils Percent Auto 76.2 % (45-73); Platelet Count 182 X10*3/uL (160-400); Red Blood Count 3.39 X10*6/uL (4.20-5.50); Red Cell Distribution Width 13.7 % (11.0-16.0); White Blood Count 7.7 X10*3/uL (4.8-10.8)
[2020-07-26 23:24] VITALS: BP 170/83; PULSE 88; RESP 18; O2SAT 99
[2020-07-26 23:34] LABS: Anion Gap 10 (12-20); Blood Urea Nitrogen 31 mg/dL (9-16); Calcium 8.2 mg/dL (8.4-10.2); Carbon Dioxide 31 mmol/L (22-29); Chloride 106 mmol/L (96-108); Creatinine Clr Calc Pharmacy 64.1; Estimated Glomerular Filt Rate 45; Glucose Random 92 mg/dL (60-115); Potassium 4.6 mmol/l (3.3-5.1); Sodium 142 mmol/L (135-145)
--- NOTE | 2020-07-26 23:40 | PC.NURSE ---
PATIENT'S BLOOD SUGAR 76 AFTER EATING AND DEXTROSE 50. MD AWARE AND ORDERED MORE FOOD AND JUICE TO BE GIVEN.
[2020-07-26 23:48] LABS: Glucose, Whole Blood 76 mg/dL (60-115)
[2020-07-26 23:48] LABS: Glucose, Whole Blood 70 mg/dL (60-115)
[2020-07-26 23:51] VITALS: BP 163/68; PULSE 82; RESP 18; TEMP 36.8; O2SAT 97
[2020-07-26] MEDS: Dextrose 5 % and 0.45 % NaCl 1,000 ML 100 ML IVCONT (23:58)
[2020-07-27] VITALS: BP 162/64; PULSE 83; RESP 16; TEMP 36.8; O2SAT 98
--- NOTE | 2020-07-27 00:19 | ED_ITS ---
HPI - General Adult General Chief complaint: General Medical Stated complaint: HYPOGLYCEMIA Time Seen by Provider: 07/26/20 21:38 Related Data Home Medications Medication Instructions Recorded Confirmed Benadryl 25 mg PO NEEDED 07/11/20 07/26/20 Colace 100 mg PO BID 07/11/20 07/26/20 Protonix 40 mg PO DAILY 07/11/20 07/26/20 Vitamin D3 125 mg PO DAILY 07/11/20 07/26/20 bupropion HCl 150 mg PO BID 07/11/20 07/26/20 clopidogrel 75 mg PO DAILY 07/11/20 07/26/20 fluoxetine 40 mg PO DAILY #0 07/11/20 07/26/20 furosemide 60 mg PO BID 07/11/20 07/26/20 gabapentin 300 mg PO TID 07/11/20 07/26/20 isosorbide mononitrate 120 mg PO DAILY 07/11/20 07/26/20 lisinopril 30 mg PO DAILY #0 07/11/20 07/26/20 rosuvastatin 5 mg PO DAILY 07/11/20 07/26/20 theophylline 300 mg PO BID 07/11/20 07/26/20 Previous Rx's Medication Instructions Recorded carvedilol [Coreg] 6.25 mg PO BID #60 tab 07/12/20 carvedilol [Coreg] 12.5 mg PO Q12H #60 tab 07/12/20 ferrous sulfate 325 mg PO DAILY #30 tab 07/12/20 Allergies Allergy/AdvReac Type Severity Reaction Status Date / Time No Known Allergies Allergy Mild NOT Unverified 06/17/20 15:19 APPLICABLE statins Allergy Unknown myositis Uncoded 12/30/19 00:00 [facility] Past Medical History Medical History CAD (coronary artery disease) CHF (congestive heart failure) Diabetes Endometrial hyperplasia History of [place] (myocardial infarction) HTN (hypertension) Pancreatitis Precordial chest pain Yeast dermatitis Social History Social History Household Members: Children Housing: Apartment Alcohol intake: never Smoking Status: Smoker, status unknown Use of substances other than those prescribed or required for medical reasons: No Advance Directives: No Advance Directives Information Provided: Yes Physical Exam Vital Signs: Vital Signs: Vital Signs Temp Pulse Resp BP Pulse Ox 07/26/20 23:51 98.2 F 82 18 163/68 H 97 07/26/20 23:24 88 18 170/83 H 99 07/26/20 21:16 98 F 94 161/77 H 96 07/26/20 20:50 98.4 F 86 18 161/77 H 99 Body Mass Index 47.0 Medical Decision Making MDM Narrative Medical decision making narrative: Patient 54 years old has a long history of diabetes. Patient did not want to stay in the hospital. Patient was offered admission. Told that low sugar can kill her. Patient advised to stay. Understood the risk of risk of severe loss of current lifestyle. Patient's stay she must leave. Patient told that she could come back at any time. Told to reduce the amount of insulin to 1/2 her normal dose. To skip her insulin tonight. To check her sugars very carefully. Lab Data Result diagrams: 07/26/20 22:58 07/26/20 22:58 Labs: Lab Results 07/26/20 07/26/20 07/26/20 Range/Units 21:42 22:11 22:58 WBC 7.7 (4.8-10.8) X10*3/uL RBC 3.39 L (4.20-5.50) X10*6/uL Hgb 10.5 L (12.0-16.0) g/dl Hct 33.5 L (37-47) % MCV 98.8 H (80-98) fL MCH 31.0 (27.0-33.0) pg MCHC 31.3 (31.0-35.0) g/dl RDW 13.7 (11.0-16.0) % Plt Count 182 D (160-400) X10*3/uL MPV 11.6 (9.4-12.3) fL Immature Gran % (Auto) 0.3 (0.0-0.4) % Neut % (Auto) 76.2 H (45-73) % Lymph % (Auto) 14.1 L (20-40) % [place] % (Auto) 7.9 (2-11) % Eos % (Auto) 1.0 (0-4) % Baso % (Auto) 0.5 (0-2) % Lymph # (Auto) 1.1 L (1.2-4.9) X10*3/uL [place] # (Auto) 0.6 (0.1-1.2) X10*3/uL Eos # (Auto) 0.1 (0.0-0.4) X10*3/uL Baso # (Auto) 0.0 (0.0-0.2) X10*3/uL Abs Immat Gran (auto) 0.02 (0.00-0.03) X10*3/uL Absolute Neuts (auto) 5.9 (2.0-8.3) X10*3/uL Absolute Nucleated RBC 0.000 (0.0-0.012) X10*3/uL Nucleated RBC % (auto) 0.0 (0.0-0.2) /100WBC Sodium (135-145) mmol/L Potassium (3.3-5.1) mmol/l Chloride (96-108) mmol/L Carbon Dioxide (22-29) mmol/L Anion Gap (12-20) BUN (9-16) mg/dL Creatinine (0.5-1.4) mg/dL Estim Creat Clear Calc Estimated GFR POC Glucose 19 L* 115 (60-115) mg/dL Random Glucose (60-115) mg/dL Calcium (8.4-10.2) mg/dL 07/26/20 07/26/20 07/26/20 Range/Units 22:58 23:23 23:43 WBC (4.8-10.8) X10*3/uL RBC (4.20-5.50) X10*6/uL Hgb (12.0-16.0) g/dl Hct (37-47) % MCV (80-98) fL MCH (27.0-33.0) pg MCHC (31.0-35.0) g/dl RDW (11.0-16.0) % Plt Count (160-400) X10*3/uL MPV (9.4-12.3) fL Immature Gran % (Auto) (0.0-0.4) % Neut % (Auto) (45-73) % Lymph % (Auto) (20-40) % [place] % (Auto) (2-11) % Eos % (Auto) (0-4) % Baso % (Auto) (0-2) % Lymph # (Auto) (1.2-4.9) X10*3/uL [place] # (Auto) (0.1-1.2) X10*3/uL Eos # (Auto) (0.0-0.4) X10*3/uL Baso # (Auto) (0.0-0.2) X10*3/uL Abs Immat Gran (auto) (0.00-0.03) X10*3/uL Absolute Neuts (auto) (2.0-8.3) X10*3/uL Absolute Nucleated RBC (0.0-0.012) X10*3/uL Nucleated RBC % (auto) (0.0-0.2) /100WBC Sodium 142 (135-145) mmol/L Potassium 4.6 D (3.3-5.1) mmol/l Chloride 106 (96-108) mmol/L Carbon Dioxide 31 H (22-29) mmol/L Anion Gap 10 L (12-20) BUN 31 H D (9-16) mg/dL Creatinine 1.23 (0.5-1.4) mg/dL Estim Creat Clear Calc 64.1 Estimated GFR 45 POC Glucose 76 70 (60-115) mg/dL Random Glucose 92 D (60-115) mg/dL Calcium 8.2 L (8.4-10.2) mg/dL Discharge Plan Discharge Clinical Impression: Hypoglycemia, Left against medical advice Diabetes Qualifiers: Diabetes mellitus type: type 1 Diabetes mellitus complication status: with hypoglycemia Patient Disposition: Left Against Medical Advice Instructions: Hypoglycemia in a Person with Diabetes (ED) Additional Instructions: You are leaving against medical advice. Risk of exist. Low sugar can kill you. Please monitor your sugar carefully. Please do not take your insulin tonight. Please be very careful in using your insulin tomorrow. Please take only half a dose and monitor your kid sugar very carefully. You are always welcome back if she changed her mind Prescriptions: No Action bupropion HCl 150 mg tablet 150 mg PO BID RF: 0 clopidogrel 75 mg tablet 75 mg PO DAILY RF: 0 Colace 100 mg capsule 100 mg PO BID RF: 0 fluoxetine 20 mg Capsule 40 mg PO DAILY Qty: 0 RF: 0 furosemide 20 mg tablet 60 mg PO BID RF: 0 gabapentin 300 mg capsule 300 mg PO TID RF: 0 isosorbide mononitrate 120 mg PO DAILY RF: 0 lisinopril 30 mg Tablet 30 mg PO DAILY Qty: 0 RF: 0 Protonix 40 mg PO DAILY RF: 0 rosuvastatin 5 mg PO DAILY RF: 0 theophylline 300 mg PO BID RF: 0 Vitamin D3 tablet 125 mg PO DAILY RF: 0 Benadryl 25 mg PO NEEDED RF: 0 ferrous sulfate 324 mg (65 mg iron) Tablet,Delayed Release (Dr/Ec) 325 mg PO DAILY Qty: 30 RF: 0 carvedilol [Coreg] 12.5 mg tablet 12.5 mg PO Q12H Qty: 60 RF: 0 carvedilol [Coreg] 6.25 mg tablet 6.25 mg PO BID Qty: 60 RF: 0 Referrals: Physician,Unknown [Primary Care Provider] - 1 day
[2020-07-27 00:53] LABS: Glucose, Whole Blood 101 mg/dL (60-115)
--- NOTE | 2020-07-27 02:30 | PC.NURSE ---
PATIENT REFUSED TO BE ADMITTED TO HOSPITAL STATING THAT SHE IS NOT GOING TO STAY IN HOSPITAL. PATIENT IS LEAVING AMA AND THEREFORE NO AMBULANCE WILL TRANSPORT HOME. THIS BAT[employer] WRECKER OPERATOR ATTEMPTED TO CONTACT PATIENT'S FAMILY EMERGENCY CONTACT BUT NO ANSWER. I LEFT A MESSAGE WITH THE HOSPITAL NUMBER. PATIENT STATED SHE CALLED A FEW NUMBERS AND NO ONE ANSWERED.
--- NOTE | 2020-07-27 03:24 | ED.GENADULT ---
HPI - General Adult General Chief complaint: General Medical Stated complaint: HYPOGLYCEMIA Time Seen by Provider: 07/26/20 21:38 Related Data Home Medications Medication Instructions Recorded Confirmed Benadryl 25 mg PO NEEDED 07/11/20 07/26/20 Colace 100 mg PO BID 07/11/20 07/26/20 Protonix 40 mg PO DAILY 07/11/20 07/26/20 Vitamin D3 125 mg PO DAILY 07/11/20 07/26/20 bupropion HCl 150 mg PO BID 07/11/20 07/26/20 clopidogrel 75 mg PO DAILY 07/11/20 07/26/20 fluoxetine 40 mg PO DAILY #0 07/11/20 07/26/20 furosemide 60 mg PO BID 07/11/20 07/26/20 gabapentin 300 mg PO TID 07/11/20 07/26/20 isosorbide mononitrate 120 mg PO DAILY 07/11/20 07/26/20 lisinopril 30 mg PO DAILY #0 07/11/20 07/26/20 rosuvastatin 5 mg PO DAILY 07/11/20 07/26/20 theophylline 300 mg PO BID 07/11/20 07/26/20 Previous Rx's Medication Instructions Recorded carvedilol [Coreg] 6.25 mg PO BID #60 tab 07/12/20 carvedilol [Coreg] 12.5 mg PO Q12H #60 tab 07/12/20 ferrous sulfate 325 mg PO DAILY #30 tab 07/12/20 Allergies Allergy/AdvReac Type Severity Reaction Status Date / Time No Known Allergies Allergy Mild NOT Unverified 06/17/20 15:19 APPLICABLE statins Allergy Unknown myositis Uncoded 12/30/19 00:00 [facility] Past Medical History Medical History CAD (coronary artery disease) CHF (congestive heart failure) Diabetes Endometrial hyperplasia History of [place] (myocardial infarction) HTN (hypertension) Pancreatitis Precordial chest pain Yeast dermatitis Social History Social History Household Members: Children Housing: Apartment Alcohol intake: never Smoking Status: Smoker, status unknown Use of substances other than those prescribed or required for medical reasons: No Advance Directives: No Advance Directives Information Provided: Yes Physical Exam Vital Signs: Vital Signs: Vital Signs Temp Pulse Resp BP Pulse Ox 07/27/20 00:00 98.2 F 83 16 162/64 H 98 07/26/20 23:51 98.2 F 82 18 163/68 H 97 07/26/20 23:24 88 18 170/83 H 99 07/26/20 21:16 98 F 94 161/77 H 96 07/26/20 20:50 98.4 F 86 18 161/77 H 99 Body Mass Index 47.0 Medical Decision Making Lab Data Result diagrams: 07/26/20 22:58 07/26/20 22:58 Labs: Lab Results 07/26/20 07/26/20 07/26/20 Range/Units 21:42 22:11 22:58 WBC 7.7 (4.8-10.8) X10*3/uL RBC 3.39 L (4.20-5.50) X10*6/uL Hgb 10.5 L (12.0-16.0) g/dl Hct 33.5 L (37-47) % MCV 98.8 H (80-98) fL MCH 31.0 (27.0-33.0) pg MCHC 31.3 (31.0-35.0) g/dl RDW 13.7 (11.0-16.0) % Plt Count 182 D (160-400) X10*3/uL MPV 11.6 (9.4-12.3) fL Immature Gran % (Auto) 0.3 (0.0-0.4) % Neut % (Auto) 76.2 H (45-73) % Lymph % (Auto) 14.1 L (20-40) % [place] % (Auto) 7.9 (2-11) % Eos % (Auto) 1.0 (0-4) % Baso % (Auto) 0.5 (0-2) % Lymph # (Auto) 1.1 L (1.2-4.9) X10*3/uL [place] # (Auto) 0.6 (0.1-1.2) X10*3/uL Eos # (Auto) 0.1 (0.0-0.4) X10*3/uL Baso # (Auto) 0.0 (0.0-0.2) X10*3/uL Abs Immat Gran (auto) 0.02 (0.00-0.03) X10*3/uL Absolute Neuts (auto) 5.9 (2.0-8.3) X10*3/uL Absolute Nucleated RBC 0.000 (0.0-0.012) X10*3/uL Nucleated RBC % (auto) 0.0 (0.0-0.2) /100WBC Sodium (135-145) mmol/L Potassium (3.3-5.1) mmol/l Chloride (96-108) mmol/L Carbon Dioxide (22-29) mmol/L Anion Gap (12-20) BUN (9-16) mg/dL Creatinine (0.5-1.4) mg/dL Estim Creat Clear Calc Estimated GFR POC Glucose 19 L* 115 (60-115) mg/dL Random Glucose (60-115) mg/dL Calcium (8.4-10.2) mg/dL 07/26/20 07/26/20 07/26/20 Range/Units 22:58 23:23 23:43 WBC (4.8-10.8) X10*3/uL RBC (4.20-5.50) X10*6/uL Hgb (12.0-16.0) g/dl Hct (37-47) % MCV (80-98) fL MCH (27.0-33.0) pg MCHC (31.0-35.0) g/dl RDW (11.0-16.0) % Plt Count (160-400) X10*3/uL MPV (9.4-12.3) fL Immature Gran % (Auto) (0.0-0.4) % Neut % (Auto) (45-73) % Lymph % (Auto) (20-40) % [place] % (Auto) (2-11) % Eos % (Auto) (0-4) % Baso % (Auto) (0-2) % Lymph # (Auto) (1.2-4.9) X10*3/uL [place] # (Auto) (0.1-1.2) X10*3/uL Eos # (Auto) (0.0-0.4) X10*3/uL Baso # (Auto) (0.0-0.2) X10*3/uL Abs Immat Gran (auto) (0.00-0.03) X10*3/uL Absolute Neuts (auto) (2.0-8.3) X10*3/uL Absolute Nucleated RBC (0.0-0.012) X10*3/uL Nucleated RBC % (auto) (0.0-0.2) /100WBC Sodium 142 (135-145) mmol/L Potassium 4.6 D (3.3-5.1) mmol/l Chloride 106 (96-108) mmol/L Carbon Dioxide 31 H (22-29) mmol/L Anion Gap 10 L (12-20) BUN 31 H D (9-16) mg/dL Creatinine 1.23 (0.5-1.4) mg/dL Estim Creat Clear Calc 64.1 Estimated GFR 45 POC Glucose 76 70 (60-115) mg/dL Random Glucose 92 D (60-115) mg/dL Calcium 8.2 L (8.4-10.2) mg/dL 07/27/20 Range/Units 00:50 WBC (4.8-10.8) X10*3/uL RBC (4.20-5.50) X10*6/uL Hgb (12.0-16.0) g/dl Hct (37-47) % MCV (80-98) fL MCH (27.0-33.0) pg MCHC (31.0-35.0) g/dl RDW (11.0-16.0) % Plt Count (160-400) X10*3/uL MPV (9.4-12.3) fL Immature Gran % (Auto) (0.0-0.4) % Neut % (Auto) (45-73) % Lymph % (Auto) (20-40) % [place] % (Auto) (2-11) % Eos % (Auto) (0-4) % Baso % (Auto) (0-2) % Lymph # (Auto) (1.2-4.9) X10*3/uL [place] # (Auto) (0.1-1.2) X10*3/uL Eos # (Auto) (0.0-0.4) X10*3/uL Baso # (Auto) (0.0-0.2) X10*3/uL Abs Immat Gran (auto) (0.00-0.03) X10*3/uL Absolute Neuts (auto) (2.0-8.3) X10*3/uL Absolute Nucleated RBC (0.0-0.012) X10*3/uL Nucleated RBC % (auto) (0.0-0.2) /100WBC Sodium (135-145) mmol/L Potassium (3.3-5.1) mmol/l Chloride (96-108) mmol/L Carbon Dioxide (22-29) mmol/L Anion Gap (12-20) BUN (9-16) mg/dL Creatinine (0.5-1.4) mg/dL Estim Creat Clear Calc Estimated GFR POC Glucose 101 (60-115) mg/dL Random Glucose (60-115) mg/dL Calcium (8.4-10.2) mg/dL Discharge Plan Discharge Clinical Impression: Hypoglycemia, Left against medical advice Diabetes Qualifiers: Diabetes mellitus type: type 1 Diabetes mellitus complication status: with hypoglycemia Patient Disposition: Left Against Medical Advice Instructions: Hypoglycemia in a Person with Diabetes (ED) Additional Instructions: You are leaving against medical advice. Risk of exist. Low sugar can kill you. Please monitor your sugar carefully. Please do not take your insulin tonight. Please be very careful in using your insulin tomorrow. Please take only half a dose and monitor your kid sugar very carefully. You are always welcome back if she changed her mind Prescriptions: No Action bupropion HCl 150 mg tablet 150 mg PO BID RF: 0 clopidogrel 75 mg tablet 75 mg PO DAILY RF: 0 Colace 100 mg capsule 100 mg PO BID RF: 0 fluoxetine 20 mg Capsule 40 mg PO DAILY Qty: 0 RF: 0 furosemide 20 mg tablet 60 mg PO BID RF: 0 gabapentin 300 mg capsule 300 mg PO TID RF: 0 isosorbide mononitrate 120 mg PO DAILY RF: 0 lisinopril 30 mg Tablet 30 mg PO DAILY Qty: 0 RF: 0 Protonix 40 mg PO DAILY RF: 0 rosuvastatin 5 mg PO DAILY RF: 0 theophylline 300 mg PO BID RF: 0 Vitamin D3 tablet 125 mg PO DAILY RF: 0 Benadryl 25 mg PO NEEDED RF: 0 ferrous sulfate 324 mg (65 mg iron) Tablet,Delayed Release (Dr/Ec) 325 mg PO DAILY Qty: 30 RF: 0 carvedilol [Coreg] 12.5 mg tablet 12.5 mg PO Q12H Qty: 60 RF: 0 carvedilol [Coreg] 6.25 mg tablet 6.25 mg PO BID Qty: 60 RF: 0 Referrals: Physician,Unknown [Primary Care Provider] - 1 day Interventions: ED Discharge Assessment Last Done: 07/27/20 00:35
== END 2020-07-27 00:40 | disposition left against medical advice (07) ==
PROVIDERS: Emergency Provider Emergency Medicine Emergency Medical Services
DX: E10.649 Type 1 diabetes mellitus with hypoglycemia without coma (principal); Z79.899 Other long term (current) drug therapy
CPT/HCPCS: 36415; 71045; 80048; 82947; 85025; 99283; 99284

== ENCOUNTER 2020-07-30 15:25 | Observation (INO) | payer MEDICAID, SELFPAY ==
[2020-07-30 15:31] VITALS: BP 170/79; BP 172/78; PULSE 86; RESP 16; TEMP 37.2; O2SAT 95; O2SAT 96; BMI 46.7
[2020-07-30 15:59] LABS: Glucose, Whole Blood 89 mg/dL (60-115)
[2020-07-30 16:39] LABS: MANUAL DIFF FLAG NO
[2020-07-30 16:42] LABS: Basophils Absolute Auto 0.1 X10*3/uL (0.0-0.2); Basophils Percent Auto 0.5 % (0-2); Eosinophils Absolute Auto 0.4 X10*3/uL (0.0-0.4); Eosinophils Percent Auto 3.7 % (0-4); Hematocrit 33.6 % (37-47); Hemoglobin 10.2 g/dl (12.0-16.0); Imm Gran Abs Auto 0.07 X10*3/uL (0.00-0.03); Imm Gran Pct Auto 0.7 % (0.0-0.4); Lymphocytes Absolute Auto 1.1 X10*3/uL (1.2-4.9); Lymphocytes Percent Auto 10.7 % (20-40); Mean Corpuscular HGB Conc 30.4 g/dl (31.0-35.0); Mean Corpuscular Volume 102.1 fL (80-98); Mean Platelet Volume 11.8 fL (9.4-12.3); Monocytes Absolute Auto 0.8 X10*3/uL (0.1-1.2); Neutrophils Absolute Auto 7.8 X10*3/uL (2.0-8.3); Neutrophils Percent Auto 76.4 % (45-73); Platelet Count 176 X10*3/uL (160-400); Red Blood Count 3.29 X10*6/uL (4.20-5.50); Red Cell Distribution Width 13.7 % (11.0-16.0); White Blood Count 10.2 X10*3/uL (4.8-10.8)
[2020-07-30 16:53] VITALS: PULSE 85; RESP 19; TEMP 36.6; O2SAT 96
[2020-07-30 16:53] LABS: Partial Thromboplastin Time 31.5 SEC (24.1-38.0)
[2020-07-30 17:22] LABS: Alanine Aminotransferase 11 U/L (0-31); Albumin Level 2.8 g/dL (3.5-5.0); Alkaline Phosphatase 172 U/L (39-117); Anion Gap 9 (12-20); Aspartate Amino Transferase 30 U/L (5-31); Bilirubin Total 0.4 mg/dL (0.0-1.0); Blood Urea Nitrogen 29 mg/dL (9-16); Calcium 7.8 mg/dL (8.4-10.2); Carbon Dioxide 35 mmol/L (22-29); Chloride 102 mmol/L (96-108); Creatinine Clr Calc Pharmacy 68.9; Estimated Glomerular Filt Rate 51; Glucose Random 97 mg/dL (60-115); Potassium 4.8 mmol/l (3.3-5.1); Sodium 141 mmol/L (135-145); Total Protein 6.8 g/dL (6.5-8.0)
--- NOTE | 2020-07-30 17:23 | ED_ITS ---
HPI - General Adult General Chief complaint: Altered Mental Status Stated complaint: hypoglycemia Time Seen by Provider: 07/30/20 15:59 Source: patient Mode of arrival: EMS Limitations: no limitations History of Present Illness HPI narrative: patient presents to ED for altered mental status due to hypoglycemia. Patient was found altered mental status on her bed when it in a fingerstick it was 34. after given patient fluid sugar repeat fingerstick was 54 as per EMS. Patient was given D5 and when they came to the ED her fingerstick was 100. patient takes 80 units of NovoLog 3 times a day. Patient states her medication is given to her by the nurse and PA. patient states she eats before she takes her insulin Related Data Home Medications Medication Instructions Recorded Confirmed Benadryl 25 mg PO NEEDED 07/11/20 07/26/20 Colace 100 mg PO BID 07/11/20 07/26/20 Protonix 40 mg PO DAILY 07/11/20 07/26/20 Vitamin D3 125 mg PO DAILY 07/11/20 07/26/20 bupropion HCl 150 mg PO BID 07/11/20 07/26/20 clopidogrel 75 mg PO DAILY 07/11/20 07/26/20 fluoxetine 40 mg PO DAILY #0 07/11/20 07/26/20 furosemide 60 mg PO BID 07/11/20 07/26/20 gabapentin 300 mg PO TID 07/11/20 07/26/20 isosorbide mononitrate 120 mg PO DAILY 07/11/20 07/26/20 lisinopril 30 mg PO DAILY #0 07/11/20 07/26/20 rosuvastatin 5 mg PO DAILY 07/11/20 07/26/20 theophylline 300 mg PO BID 07/11/20 07/26/20 Previous Rx's Medication Instructions Recorded carvedilol [Coreg] 6.25 mg PO BID #60 tab 07/12/20 carvedilol [Coreg] 12.5 mg PO Q12H #60 tab 07/12/20 ferrous sulfate 325 mg PO DAILY #30 tab 07/12/20 glucagon HCl 1 mg solution for 1 mg SUBCUT Q20M PRN #2 ea 07/27/20 injection Allergies Allergy/AdvReac Type Severity Reaction Status Date / Time No Known Allergies Allergy Mild NOT Unverified 06/17/20 15:19 APPLICABLE statins Allergy Unknown myositis Uncoded 12/30/19 00:00 Review of Systems Review of Systems: Yes all other systems are reviewed and are negative Constitutional: Constitutional: Reports as per HPI and Reports no additional constitutional complaints Eyes: Eyes: Reports as per HPI and Reports no additional eye complaints ENT: Reports system reviewed and no additional complaints, except as documented and Reports as per HPI Cardiovascular: Cardiovascular: Reports as per HPI and Reports no additional cardiovascular complaints Respiratory: Respiratory: Reports as per HPI and Reports no additional respiratory complaints Gastrointestinal: Gastrointestinal: Reports as per HPI and Reports no additional gastrointestinal complaints Musculoskeletal: Musculoskeletal: Reports no additional musculoskeletal complaints and Reports as per HPI Neurologic: Reports system reviewed and no additional complaints, except as documented and Reports as per HPI Psychiatric: Psychiatric: Reports no additional psychiatric complaints and Reports as per HPI Endocrine: Comments: hypoglycemia [facility] Past Medical History Medical History CAD (coronary artery disease) CHF (congestive heart failure) Diabetes Endometrial hyperplasia History of CT (myocardial infarction) HTN (hypertension) Pancreatitis Precordial chest pain Yeast dermatitis Social History Social History Household Members: Children Housing: Apartment Alcohol intake: never Smoking Status: Smoker, status unknown Smoked in Last 30 Days: No Use of substances other than those prescribed or required for medical reasons: No Advance Directives: No Advance Directives Information Provided: No Physical Exam Vital Signs: Vital Signs: Vital Signs Temp Pulse Resp BP Pulse Ox 07/30/20 16:53 98 F 85 19 96 07/30/20 15:31 98.9 F 86 16 172/78 H 96 Body Mass Index 46.7 Const: General: cooperative, healthy appearing, comfortable, no acute distress, well developed and alert Orientation/consciousness: oriented to person, oriented to place, oriented to time and patient oriented x3 HENMT: Head: Yes normal to inspection Eyes: General: appearance normal, both eyes and all related structures Neck: Neck: Yes normal visual inspection, Yes full ROM, Yes no lymphadenopathy and Yes no meningeal signs Chest: Chest palpation & inspection: normal inspection of the chest, normal palpation of entire chest wall and no localized rib tenderness Resp: Effort & Inspection: normal respiratory effort, no grunting, not labored, no nasal flaring, no paradoxical thoraco-abdom movements, no retractions, no segmental paradox chest wall movement and no stridor Auscultation: clear to auscultation bilaterally, no crackles, no rales, no rhonc hi, no wheezes and breath sounds present Percussion: percussion normal Cardio: Jugular venous distension: no JVD Heart sounds: S1 normal heart sound present and S2 normal heart sound present GI: Inspection: Yes normal to inspection and No abdominal wall ecchymosis Palpation (GI): Soft to palpation, not firm, nontender, no guarding and not rigid Percussion: Yes normal to percussion Auscultation: normal bowel sounds : General: No CVA tenderness and Yes no CVA tenderness Back/Spine/Pelvis: Back: no CVA tenderness, No CVA tenderness and No back tenderness Skin: General skin exam: no rashes or lesions noted Neuro: General: oriented to person, oriented to place, oriented to time, patient oriented x3, gait normal, no meningeal signs and CN's II-XI intact bilaterally Cranial nerves: Yes CN's II-XII intact bilaterally Extrem: General: Yes normal to inspection and Yes full ROM Psych: Appearance: grossly normal and well kempt Course Course Course Narrative: patient will be given D5 normal saline and repeat labs will be ordered. Reevaluation(s) Reevaluation #1: Patient to be admitted to the hospital for hypoglycemia. Patient agrees to stay. Labs are pending. Patient is not in any distress Time: 17:40 Medical Decision Making MDM Narrative Medical decision making narrative: hypoglycemia Lab Data Result diagrams: 07/30/20 16:27 07/30/20 16:27 Labs: Lab Results 07/30/20 07/30/20 07/30/20 Range/Units 15:54 16:27 16:27 WBC 10.2 (4.8-10.8) X10*3/uL RBC 3.29 L (4.20-5.50) X10*6/uL Hgb 10.2 L (12.0-16.0) g/dl Hct 33.6 L (37-47) % MCV 102.1 H (80-98) fL MCH 31.0 (27.0-33.0) pg MCHC 30.4 L (31.0-35.0) g/dl RDW 13.7 (11.0-16.0) % Plt Count 176 (160-400) X10*3/uL MPV 11.8 (9.4-12.3) fL Immature Gran % (Auto) 0.7 H (0.0-0.4) % Neut % (Auto) 76.4 H (45-73) % Lymph % (Auto) 10.7 L (20-40) % Richardson % (Auto) 8.0 (2-11) % Eos % (Auto) 3.7 (0-4) % Baso % (Auto) 0.5 (0-2) % Lymph # (Auto) 1.1 L (1.2-4.9) X10*3/uL Richardson # (Auto) 0.8 (0.1-1.2) X10*3/uL Eos # (Auto) 0.4 (0.0-0.4) X10*3/uL Baso # (Auto) 0.1 (0.0-0.2) X10*3/uL Abs Immat Gran (auto) 0.07 H (0.00-0.03) X10*3/uL Absolute Neuts (auto) 7.8 (2.0-8.3) X10*3/uL Absolute Nucleated RBC 0.000 (0.0-0.012) X10*3/uL Nucleated RBC % (auto) 0.0 (0.0-0.2) /100WBC PT 12.0 (10.8-13.0) SEC INR 1.0 (0.9-1.1) APTT 31.5 (24.1-38.0) SEC Sodium (135-145) mmol/L Potassium (3.3-5.1) mmol/l Chloride (96-108) mmol/L Carbon Dioxide (22-29) mmol/L Anion Gap (12-20) BUN (9-16) mg/dL Creatinine (0.5-1.4) mg/dL Estim Creat Clear Calc Estimated GFR POC Glucose 89 (60-115) mg/dL Random Glucose (60-115) mg/dL Calcium (8.4-10.2) mg/dL Total Bilirubin (0.0-1.0) mg/dL AST (5-31) U/L ALT (0-31) U/L Alkaline Phosphatase (39-117) U/L Total Protein (6.5-8.0) g/dL Albumin (3.5-5.0) g/dL 07/30/ Range/Units 16:27 WBC (4.8-10.8) X10*3/uL RBC (4.20-5.50) X10*6/uL Hgb (12.0-16.0) g/dl Hct (37-47) % MCV (80-98) fL MCH (27.0-33.0) pg MCHC (31.0-35.0) g/dl RDW (11.0-16.0) % Plt Count (160-400) X10*3/uL MPV (9.4-12.3) fL Immature Gran % (Auto) (0.0-0.4) % Neut % (Auto) (45-73) % Lymph % (Auto) (20-40) % Richardson % (Auto) (2-11) % Eos % (Auto) (0-4) % Baso % (Auto) (0-2) % Lymph # (Auto) (1.2-4.9) X10*3/uL Richardson # (Auto) (0.1-1.2) X10*3/uL Eos # (Auto) (0.0-0.4) X10*3/uL Baso # (Auto) (0.0-0.2) X10*3/uL Abs Immat Gran (auto) (0.00-0.03) X10*3/uL Absolute Neuts (auto) (2.0-8.3) X10*3/uL Absolute Nucleated RBC (0.0-0.012) X10*3/uL Nucleated RBC % (auto) (0.0-0.2) /100WBC PT (10.8-13.0) SEC INR (0.9-1.1) APTT (24.1-38.0) SEC Sodium 141 (135-145) mmol/L Potassium 4.8 (3.3-5.1) mmol/l Chloride 102 (96-108) mmol/L Carbon Dioxide 35 H (22-29) mmol/L Anion Gap 9 L (12-20) BUN 29 H (9-16) mg/dL Creatinine 1.10 (0.5-1.4) mg/dL Estim Creat Clear Calc 68.9 Estimated GFR 51 POC Glucose (60-115) mg/dL Random Glucose 97 (60-115) mg/dL Calcium 7.8 L (8.4-10.2) mg/dL Total Bilirubin 0.4 (0.0-1.0) mg/dL AST 30 (5-31) U/L ALT 11 (0-31) U/L Alkaline Phosphatase 172 H (39-117) U/L Total Protein 6.8 (6.5-8.0) g/dL Albumin 2.8 L (3.5-5.0) g/dL Discharge Plan Discharge Clinical Impression: Hypoglycemia Patient Disposition: Admitted As Inpatient
[2020-07-30] MEDS: Dextrose 5 % and 0.9 % NaCl 1,000 ML 80 ML IVCONT (17:58)
--- NOTE | 2020-07-30 17:58 | ECG_ITS ---
Test Reason : HYPOGLYCEMIA Blood Pressure : / mmHG Vent. Rate : 086 BPM Atrial Rate : 086 BPM P-R Int : 186 ms QRS Dur : 100 ms QT Int : 410 ms P-R-T Axes : 052 -03 078 degrees QTc Int : 490 ms Normal sinus rhythm Intra-ventricular conduction delay Nonspecific T wave abnormality Abnormal ECG When compared with ECG of 10-JUL-2020 19:10, T wave amplitude has decreased in Lateral leads Referred By: Vinny Mcfarlane Electronically Signed By:RUBEN ADAMS MD
--- NOTE | 2020-07-30 18:03 | PM.EVENT ---
Event Note Event Note: Date of Service: July 30, 2020 Addendum to H and P by Mid-level Provider I saw and examined the patient and participated in the sesay portion of the E/M service. I agree with the history and exam as documented by PA. Patient has recurrent hypoglycemia due to too much insulin Will observe, off insulin, glucose infusion, frequent glucose check. Otherwise, I agree with assessment and plan as outlined in the H and P.
[2020-07-30 18:23] LABS: Glucose, Whole Blood 70 mg/dL (60-115)
--- NOTE | 2020-07-30 18:52 | P.HPIM_ITS ---
History of Present Illness Date of Service: 07/30/20 <RAMONITA Koch Last Filed: 07/30/20 19:15> Chief Complaint: hypoglycemia <RAMONITA Koch Last Filed: 07/30/20 19:15> this is a 54-year-old female with multiple medical problems who was brought to the emergency department after being found unresponsive and noted to have a point of care of 34. Patient was seen in the emergency department on July 26 for the same. Admission was recommended at that time however the patient declined and left against medical advice. Today her point of care on arrival was 89, repeat 70. patient reports that she has been eating well at home. She denies any vomiting. She reports that she is taking her insulin as prescribed. She is visiting nurses and [employer] who assists her with her medication. she was admitted to the hospital earlier this month and during that time she was not given any scheduled insulin, only coverage on the sliding scale. patient initially reported taking Humalog t.i.d. scheduled at home however After some investigation it was determined that her order entry representative recently prescribed human r 500 units/ml for 85U tid before meals. And she was discharged with the same. The remainder of her lab work was unremarkable. <RAMONITA Koch - Last Filed: 07/30/20 19:15> Review of Systems Review of Systems: Yes all other systems are reviewed and are negative <RAMONITA Koch Last Filed: 07/30/20 19:15> Constitutional: Constitutional: Denies chills and Denies fever(s) <RAMONITA Euceda Last Filed: 07/30/20 19:15> Cardiovascular: Cardiovascular: Denies chest pain <RAMONITA Koch Last Filed: 07/30/20 19:15> Respiratory: Respiratory: Denies cough <RAMONITA Koch Last Filed: 07/30/20 19:15> Gastrointestinal: Gastrointestinal: Denies abdominal pain <RAMONITA Koch Last Filed: 07/30/20 19:15> Neurologic: Reports system reviewed and no additional complaints, except as documented and Reports as per HPI <RAMONITA Koch Last Filed: 07/30/20 19:15> [facility] Medical History: Medical History Anxiety CAD (coronary artery disease) CHF (congestive heart failure) COPD (chronic obstructive pulmonary disease) Diabetes Endometrial hyperplasia History of [place] (myocardial infarction) HLD (hyperlipidemia) HTN (hypertension) CATERINA (obstructive sleep apnea) Pancreatitis Precordial chest pain Yeast dermatitis <RAMONITA Koch - Last Filed: 07/30/20 19:15> Family History: Family History (Updated 07/30/20 @ 19:05 by RAMONITA Koch) Other Diabetes <RAMONITA Koch - Last Filed: 07/30/20 19:15> Surgical History: Surgical History History of hip replacement <RAMONITA Koch - Last Filed: 07/30/20 19:15> Social History: Social History Household Members: Children Housing: Apartment Alcohol intake: never Smoking Status: Former smoker Smoked in Last 30 Days: No Use of substances other than those prescribed or required for medical reasons: No Advance Directives: No Advance Directives Information Provided: No service: No Current occupational status: disabled <RAMONITA Koch - Last Filed: 07/30/20 19:15> Meds Allergies/Adverse reactions: Allergies Allergy/AdvReac Type Severity Reaction Status Date / Time statins Allergy Mild Muscle Uncoded 07/31/20 03:15 cramps <RAMONITA Koch - Last Filed: 07/30/20 19:15> Home medications: Home Medications Medication Instructions Recorded Confirmed Type lisinopril 30 mg PO DAILY #0 07/11/20 07/30/20 History acetaminophen 1,000 mg PO Q6H PRN 07/30/20 07/30/20 History aspirin 81 mg PO DAILY 07/30/20 07/30/20 History cholecalciferol (vitamin D3) 125 mcg PO DAILY 07/30/20 07/30/20 History [Vitamin D3] clopidogrel 75 mg PO DAILY 07/30/20 07/30/20 History diphenhydramine HCl 50 mg PO Q8H PRN 07/30/20 07/30/20 History docusate sodium 100 mg PO BID 07/30/20 07/30/20 History ferrous sulfate 325 mg PO DAILY 07/30/20 07/30/20 History fluticasone prp-sod.chl,bicarb 2 spray INTRANASAL DAILY 07/30/20 07/30/20 History furosemide 60 mg PO BID 07/30/20 07/30/20 History gabapentin 300 mg PO TID 07/30/20 07/30/20 History insulin regular hum U-500 conc 85 unit SUBCUT TIDAC 07/30/20 07/30/20 History [Humulin R U-500 (Conc) Insulin] isosorbide mononitrate 120 mg PO DAILY 07/30/20 07/30/20 History ketoconazole 1 applic TOPICAL Q7D 07/30/20 07/30/20 History megestrol 80 mg PO BID 07/30/20 07/30/20 History nystatin 1 applic TOPICAL BID 07/30/20 07/30/20 History ondansetron 8 mg PO BID 07/30/20 07/30/20 History oxycodone 10 mg PO TID PRN 07/30/20 07/30/20 History pantoprazole 40 mg PO DAILY 07/30/20 07/30/20 History rosuvastatin 5 mg PO BEDTIME 07/30/20 07/30/20 History theophylline 300 mg PO BID 07/30/20 07/30/20 History <RAMONITA Koch - Last Filed: 07/30/20 19:15> Physical Exam Vital Signs and Narrative: Vital Signs: Last Vital Signs Temp 98 F 07/30/20 16:53 Pulse 85 07/30/20 16:53 Resp 19 07/30/20 16:53 BP 172/78 H 07/30/20 15:31 Pulse Ox 96 07/30/20 16:53 Body Mass Index 46.7 <RAMONITA Koch - Last Filed: 07/30/20 19:15> Const: Nutritional Appearance: obese <RAMONITA Koch - Last Filed: 07/30/20 19:15> Orientation/consciousness: patient oriented x3 <RAMONITA Koch - Last Filed: 07/30/20 19:15> HENMT: Head: Yes normocephalic and Yes atraumatic <RAMONITA Koch - Last Filed: 07/30/20 19:15> Eyes: Sclerae: sclerae normal <RAMONITA Koch - Last Filed: 07/30/20 19:15> Chest: Chest palpation & inspection: normal inspection of the chest <RAMONITA Koch - Last Filed: 07/30/20 19:15> Resp: Effort & Inspection: normal respiratory effort and no respiratory distress <RAMONITA Koch - Last Filed: 07/30/20 19:15> Auscultation: clear to auscultation bilaterally <RAMONITA Koch - Last Filed: 07/30/20 19:15> Cardio: Rate: regular rate <RAMONITA Koch - Last Filed: 07/30/20 19:15> Rhythm: regular rhythm <RAMONITA Koch - Last Filed: 07/30/20 19:15> GI: Palpation (GI): Soft to palpation and nontender <RAMONITA Koch - Last Filed: 07/30/20 19:15> Skin: General skin exam: no rashes or lesions noted <RAMONITA Koch - Last Filed: 07/30/20 19:15> Neuro: General: patient oriented x3 <RAMONITA Koch - Last Filed: 07/30/20 19:15> Cranial nerves: Yes CN's II-XII intact bilaterally and Yes Bilaterally intact EOM present <RAMONITA Koch - Last Filed: 07/30/20 19:15> Extrem: General: Yes normal to inspection <RAMONITA Koch - Last Filed: 07/30/20 19:15> Results Labs Labs: Laboratory Tests 07/30/20 07/30/20 07/30/20 15:54 16:27 16:27 WBC 10.2 RBC 3.29 L Hgb 10.2 L Hct 33.6 L MCV 102.1 H MCH 31.0 MCHC 30.4 L RDW 13.7 Plt Count 176 MPV 11.8 Immature Gran % (Auto) 0.7 H Neut % (Auto) 76.4 H Lymph % (Auto) 10.7 L Nuckolls % (Auto) 8.0 Eos % (Auto) 3.7 Baso % (Auto) 0.5 Lymph # (Auto) 1.1 L [place] # (Auto) 0.8 Eos # (Auto) 0.4 Baso # (Auto) 0.1 Abs Immat Gran (auto) 0.07 H Absolute Neuts (auto) 7.8 Absolute Nucleated RBC 0.000 Nucleated RBC % (auto) 0.0 PT 12.0 INR 1.0 APTT 31.5 Sodium Potassium Chloride Carbon Dioxide Anion Gap BUN Creatinine Estim Creat Clear Calc Estimated GFR POC Glucose 89 Random Glucose Calcium Total Bilirubin AST ALT Alkaline Phosphatase Total Protein Albumin 07/30/20 07/30/20 16:27 18:19 WBC RBC Hgb Hct MCV MCH MCHC RDW Plt Count MPV Immature Gran % (Auto) Neut % (Auto) Lymph % (Auto) [place]uckolls % (Auto) Eos % (Auto) Baso % (Auto) Lymph # (Auto) [place]olls # (Auto) Eos # (Auto) Baso # (Auto) Abs Immat Gran (auto) Absolute Neuts (auto) Absolute Nucleated RBC Nucleated RBC % (auto) PT INR APTT Sodium 141 Potassium 4.8 Chloride 102 Carbon Dioxide 35 H Anion Gap 9 L BUN 29 H Creatinine 1.10 Estim Creat Clear Calc 68.9 Estimated GFR 51 POC Glucose 70 Random Glucose 97 Calcium 7.8 L Total Bilirubin 0.4 AST 30 ALT 11 Alkaline Phosphatase 172 H Total Protein 6.8 Albumin 2.8 L <RAMONITA Koch - Last Filed: 07/30/20 19:15> Assessment and Plan (1) Hypoglycemia: Status: Acute <RAMONITA Koch - Last Filed: 07/30/20 19:15> this is a 54-year-old female with a history of diabetes, hypertension, dyslipidemia, sleep apnea on CPAP, diastolic CHF, COPD/asthma who presents to the emergency department with an episode of unresponsiveness secondary to hypoglycemia diabetes with hypoglycemia on high dose of regular insulin at home - hold insulin - D10, q.1 hour point of care until blood sugar stable - ADA diet CATERINA - CPAP CHF currently euvolemic - continue Lasix hypertension - continue lisinopril, Coreg neuropathy - continue gabapentin HLD - continue statin CAD - continue Coreg, isosorbide, Plavix, aspirin morbid obesity - BMI 46.8 - weight loss encouraged DVT prophylaxis - lovenox this case was discussed with Dr. Serrano <RAMONITA Koch - Last Filed: 07/30/20 19:15>
[2020-07-30] MEDS: Dextrose 10 % 1,000 ML 80 ML IVCONT (19:07)
[2020-07-30 20:31] LABS: SARS COV2 PCR INHOUSE NEGATIVE (Negative)
[2020-07-30 21:17] VITALS: BP 186/67; PULSE 80; RESP 19; TEMP 37.1; O2SAT 96
[2020-07-30 21:28] LABS: Glucose, Whole Blood 80 mg/dL (60-115)
[2020-07-30 23:30] VITALS: BP 180/72; PULSE 86; RESP 18; TEMP 36.6; O2SAT 99
[2020-07-30 23:34] LABS: Glucose, Whole Blood 88 mg/dL (60-115)
[2020-07-30] MEDS: Enoxaparin Sodium 40 MG/0.4 ML SYRINGE SUBCUT (23:45)
[2020-07-30 23:46] VITALS: BP 180/72; PULSE 86
[2020-07-30] MEDS: carvediloL 6.25 MG TABLET PO (23:46)
[2020-07-30] MEDS: carvediloL 12.5 MG TABLET PO (23:46)
[2020-07-30] MEDS: Docusate Sodium 100 MG CAPSULE PO (23:46)
[2020-07-30] MEDS: Gabapentin 300 MG CAPSULE PO (23:46)
[2020-07-30] MEDS: Megestrol Acetate 20 MG TABLET 80 MG PO (23:47)
[2020-07-31] VITALS (7 sets, daily range): BP systolic 107–164; BP diastolic 50–75; PULSE 74–80; RESP 18; TEMP 36–36.4; O2SAT 90–99; BMI 45.3
[2020-07-31 01:19] LABS: Glucose, Whole Blood 112 mg/dL (60-115)
[2020-07-31 02:09] LABS: Glucose, Whole Blood 124 mg/dL (60-115)
[2020-07-31 03:24] LABS: Glucose, Whole Blood 119 mg/dL (60-115)
[2020-07-31 04:08] LABS: Glucose, Whole Blood 123 mg/dL (60-115)
[2020-07-31 05:11] LABS: Glucose, Whole Blood 126 mg/dL (60-115)
[2020-07-31 06:02] LABS: Glucose, Whole Blood 135 mg/dL (60-115)
--- NOTE | 2020-07-31 07:15 | PC.NURSE ---
Patient c/o not being able to void on arrival from ED. Pt placed on bedpan but unable to void. Pt then bladder scanned for >999, Dr. Demarco notified and ordered a vernon to be placed. Vernon was placed and immediately drained 1800ml yellow urine. Pt tolerated well and then stated, I feel much better .
[2020-07-31 07:29] LABS: Glucose, Whole Blood 131 mg/dL (60-115)
[2020-07-31] MEDS: Gabapentin 300 MG CAPSULE PO ×3 (08:02→21:24)
[2020-07-31] MEDS: Docusate Sodium 100 MG CAPSULE PO ×2 (08:03→21:24)
[2020-07-31] MEDS: Aspirin Enteric Coated 81 MG TABLET.DR PO (08:03)
[2020-07-31] MEDS: lisinopriL 10 MG TABLET 30 MG PO (08:03)
[2020-07-31] MEDS: Theophylline Anhydrous ER 300 MG TAB.ER.12H PO ×2 (08:03→21:24)
[2020-07-31] MEDS: carvediloL 6.25 MG TABLET PO ×2 (08:03→21:26)
[2020-07-31] MEDS: Clopidogrel Bisulfate 75 MG TABLET PO (08:03)
[2020-07-31] MEDS: Isosorbide Mononitrate 60 MG TAB.ER.24H 120 MG PO (08:03)
[2020-07-31] MEDS: Megestrol Acetate 20 MG TABLET 80 MG PO ×2 (08:04→21:26)
[2020-07-31] MEDS: 0.9 % Sodium Chloride Flush 3 ML SYRINGE IVFLUSH ×3 (08:04→21:26)
[2020-07-31] MEDS: Nystatin Powder 15 GM BOTTLE 1 APPL TOPICAL ×2 (08:05→23:59)
[2020-07-31 08:15] LABS: Glucose, Whole Blood 132 mg/dL (60-115)
[2020-07-31 09:08] LABS: Glucose, Whole Blood 135 mg/dL (60-115)
[2020-07-31] MEDS: carvediloL 12.5 MG TABLET PO ×2 (10:09→21:25)
[2020-07-31 10:22] LABS: Glucose, Whole Blood 142 mg/dL (60-115)
--- NOTE | 2020-07-31 11:13 | MHC.CM.PN ---
CHEMICAL LAB TECHNICIAN completed with pt who reports she technically lives alone but has had her son staying with her. Pt reports she has a COMMUNICATIONS MEDIA PROFESSOR that comes twice per day from [facility] (6 hrs total/day) and a nurse comes three times a day from [facility] to administer meds. Pt reports she is still active with [facility] for primary care and receives her oxygen supplies through [facility]. Pt has a HCP on file that she confirms is up to date. Observation status explained to pt and copy of notice provided pt will discharge home with resumption of services and will need BLS transport
[2020-07-31 11:33] LABS: Hematocrit 28.3 % (37-47); Hemoglobin 8.6 g/dl (12.0-16.0); Mean Corpuscular HGB Conc 30.4 g/dl (31.0-35.0); Mean Corpuscular Hemoglobin 30.8 pg (27.0-33.0); Mean Corpuscular Volume 101.4 fL (80-98); Mean Platelet Volume 11.5 fL (9.4-12.3); Platelet Count 162 X10*3/uL (160-400); Red Blood Count 2.79 X10*6/uL (4.20-5.50); Red Cell Distribution Width 13.4 % (11.0-16.0); White Blood Count 5.7 X10*3/uL (4.8-10.8)
[2020-07-31 11:49] LABS: Glucose, Whole Blood 185 mg/dL (60-115)
[2020-07-31 11:54] LABS: Blood Urea Nitrogen 25 mg/dL (9-16); Calcium 7.5 mg/dL (8.4-10.2); Creatinine Clr Calc Pharmacy 78.3; Estimated Glomerular Filt Rate > 60; Glucose Random 166 mg/dL (60-115)
[2020-07-31 12:06] LABS: Anion Gap 10 (12-20); Carbon Dioxide 34 mmol/L (22-29); Chloride 101 mmol/L (96-108); Potassium 5.2 mmol/l (3.3-5.1); Sodium 140 mmol/L (135-145)
[2020-07-31] MEDS: oxyCODONE HCl Immed Release 5 MG TABLET 10 MG PO ×2 (12:38→23:58)
--- NOTE | 2020-07-31 12:46 | HO.PM.IMPN ---
Subjective Subjective Date of Service: 07/31/20 Interval History: Seen in f/u for hypoglycemia.. Blood sugars have trended up and has been taking off D10. Review of Systems Gen: no fever Neuro: no confusion Endo: no symptoms of hypoglycemia\ Physical Exam Vital Signs: Vital Signs: Vital Signs Temp Pulse Resp BP Pulse Ox 07/31/20 11:47 97.2 F 78 18 107/58 L 95 07/31/20 10:09 74 126/50 L 07/31/20 08:03 77 155/75 H 07/31/20 07:24 97.2 F 77 18 155/75 H 95 07/31/20 03:22 96.8 F 76 18 164/58 H 99 07/30/20 23:46 86 180/72 H 07/30/20 23:30 98 F 86 18 180/72 H 99 07/30/20 21:17 98.7 F 80 19 186/67 H 96 07/30/20 16:53 98 F 85 19 96 07/30/20 15:31 98.9 F 86 16 172/78 H 96 Body Mass Index 45.3 Const: Nutritional Appearance: obese Orientation/consciousness: patient oriented x3 HENMT: Head: Yes normocephalic and Yes atraumatic Eyes: Sclerae: sclerae normal Chest: Chest palpation & inspection: normal inspection of the chest Resp: Effort & Inspection: normal respiratory effort and no respiratory distress Auscultation: clear to auscultation bilaterally Cardio: Rate: regular rate Rhythm: regular rhythm GI: Palpation (GI): Soft to palpation and nontender Skin: General skin exam: no rashes or lesions noted Neuro: General: patient oriented x3 Cranial nerves: Yes CN's II-XII intact bilaterally and Yes Bilaterally intact EOM present Extrem: General: Yes normal to inspection Objective Data Current Medications Generic Name Dose Route Start Last Admin Trade Name Freq PRN Reason Stop Dose Admin Acetaminophen 650 mg 07/30/20 22:08 Acetaminophen 325 Mg Tablet PO Q6H PRN Pain, Mild (Pain Scale 1-3) Aspirin 81 mg 07/31/20 09:00 07/31/20 08:03 Aspirin Enteric Coated 81 Mg Tablet.Dr PO 81 mg DAILY AUTUMN Administration Carvedilol 6.25 mg 07/30/20 22:08 07/31/20 08:03 Carvedilol 6.25 Mg Tablet PO 6.25 mg BID AUTUMN Administration Protocol Carvedilol 12.5 mg 07/30/20 22:08 07/31/20 10:09 Carvedilol 12.5 Mg Tablet PO 12.5 mg Q12H AUTUMN Administration Protocol Clopidogrel Bisulfate 75 mg 07/31/20 09:00 07/31/20 08:03 Clopidogrel Bisulfate 75 Mg Tablet PO 75 mg DAILY AUTUMN Administration Diphenhydramine HCl 50 mg 07/30/20 22:08 Diphenhydramine Hcl 25 Mg Tablet PO Q8H PRN Itching Docusate Sodium 100 mg 07/30/20 22:08 Docusate Sodium 100 Mg Capsule PO DAILY PRN Constipation Docusate Sodium 100 mg 07/30/20 22:08 07/31/20 08:03 Docusate Sodium 100 Mg Capsule PO 100 mg BID AUTUMN Administration Enoxaparin Sodium 40 mg 07/30/20 22:08 07/30/20 23:45 Enoxaparin Sodium 40 Mg/0.4 Ml Syringe SUBCUT 40 mg Q24H AUTUMN Administration Furosemide 60 mg 08/01/20 08:00 Furosemide 20 Mg Tablet PO BID@0800,1700 [facility] Protocol Gabapentin 300 mg 07/30/20 22:08 07/31/20 08:02 Gabapentin 300 Mg Capsule PO 300 mg TID [facility] Administration Isosorbide Mononitrate 120 mg 07/31/20 09:00 07/31/20 08:03 Isosorbide Mononitrate 60 Mg Tab.Er.24h PO 120 mg DAILY AUTUMN Administration Lisinopril 30 mg 07/31/20 09:00 07/31/20 08:03 Lisinopril 10 Mg Tablet PO 30 mg DAILY [facility] [place] Administration Protocol Megestrol Acetate 80 mg 07/30/20 22:08 07/31/20 08:04 Megestrol Acetate 20 Mg Tablet PO 80 mg BID [facility] [place] Administration Non-Formulary Medication 5 mg 07/30/20 22:08 Rosuvastatin PO BEDTIME [facility] Nystatin 1 appl 07/30/20 22:08 07/31/20 08:05 Nystatin Powder 15 Gm Bottle TOPICAL 1 appl BID [facility] Administration Protocol Ondansetron HCl 4 mg 07/30/20 22:08 Ondansetron Hcl 4 Mg/2 Ml Vial IVPUSH Q8H PRN Nausea and Vomiting Oxycodone HCl 10 mg 07/31/20 12:31 07/31/20 12:38 Oxycodone Hcl Immed Release 5 Mg Tablet PO 10 mg TID PRN Administration Pain (Scale Score 7-10) Pharmacy Consult 1 each 07/30/20 18:43 Consult Rx Perform Med Rec MISCELLANE ONCE PRN Consult order Sodium Chloride 3 ml 07/31/20 00:00 07/31/20 08:04 0.9 % Sodium Chloride Flush 3 Ml Syringe IVFLUSH 3 ml QSHIFT [facility]UMN Administration Theophylline 300 mg 07/31/20 09:00 07/31/20 08:03 Theophylline Anhydrous Er 300 Mg Tab.Er.12h PO 300 mg BID AUTUMN Administration Labs CBC & Chem 7: 07/31/20 10:58 07/31/20 10:58 Assessment and Plan (1) Hypoglycemia: Status: Acute Assessment and Plan: 54-year-old female with a history of diabetes, hypertension, dyslipidemia, sleep apnea on CPAP, diastolic CHF, COPD/asthma who presents to the emergency department with an episode of unresponsiveness secondary to hypoglycemia diabetes with hypoglycemia on high dose human r 500 units/ml 85U tid before meals prescribed by sales floor team member -She was on d10 overnight and sugars have improved -stop d10 and monitor glucose closely -Add Sliding scale later if sugars are trending up -She will need drastic reduction in insulin depending on how much she requires per SSI -If still here on Sunday, consult with Dr. Flowers over the phone - CATERINA - CPAP CHF currently euvolemic - continue Lasix hypertension - continue lisinopril, Coreg neuropathy - continue gabapentin and oxycodone HLD - continue statin CAD - continue Coreg, isosorbide, Plavix, aspirin morbid obesity - BMI 46.8 - weight loss encouraged DVT prophylaxis - lovenox Home once insulin well adjusted
[2020-07-31 16:22] LABS: Glucose, Whole Blood 265 mg/dL (60-115)
[2020-07-31] MEDS: Insulin Lispro 100 UNIT/ML 3 ML VIAL SUBCUT ×2 (16:37→21:24)
[2020-07-31 21:18] LABS: Glucose, Whole Blood 280 mg/dL (60-115)
[2020-07-31] MEDS: Enoxaparin Sodium 40 MG/0.4 ML SYRINGE SUBCUT (21:24)
[2020-08-01] VITALS: BP 129/60; PULSE 74; RESP 20; TEMP 36.8; O2SAT 98
--- NOTE | 2020-08-01 05:52 | PM.EVENT ---
Event Note Event Note: Bella beck called around 5:40 am as patient was found without obtainable vital signs. Patient is noted on chart to be full code. CPR was initiated per protocol, ICU PA, ED Dr Madrigal and Me at the bedside. Patient's sister listed on chart was called, Letty Gasca and was asked about current code status of the patient. She states that when patient was awake, alert and able to make decisions, she reported that did not want to be intubated and placed on mechanical ventilation but was agreeable with chest compressions. CPR was continued but no ROSC was able to be obtained. Time of 5:51 am. Family listed on chart (sister of the patient called and informed).
[2020-08-01 06:04] LABS: Glucose, Whole Blood 214 mg/dL (60-115)
--- NOTE | 2020-08-01 07:35 | PC.NURSE ---
This RN into pt room around 0525 to wash patient up for the day. At this time it was noted that the patient was not breathing. No pulse found and code initiated (see code notes) as patient is a full code. Code ended at 0550. [facility] was called by this RN at 0610. [facility] case #[id number]
--- NOTE | 2020-08-06 16:38 | PM.DS ---
DS: Providers Provider Date of admission: 07/30/20 18:02 on 08/01/2020 Primary care physician: [facility] DS: Diagnosis Discharge Diagnosis (1) Hypoglycemia: Status: Acute (2) CAD (coronary artery disease): Status: Acute (3) HTN (hypertension): Status: Acute (4) Diabetes: Status: Acute (5) CHF (congestive heart failure): Status: Acute DS: Summary Hospital Course Hospital Course: Patient is 55 and has multiple medical proplems including diabetes, CAD, HTN, heart failure among other. She was admitted 2 days earlier with severe hypoglycemia as she take high doses of insulin. She was put on IVF with glucose and by the following day hypoglycemia has resolved and there was no further episodes. She has also being hemodynamically stable at that time and therefor did need additional work or monitoring and was planned to discharge home the next day. How early in the morning while staff was attending to her to record routine vital sound. She was unresponsive and resuscitation was initiated per ACLS protocol. Family roported that she would not want such measure at that point and effort were terminated. This is a late entry note as I was not present at the time of these events but did care for the patient. See additional docmentation from Dr. Berry at time of . Time Spent with Patient Time attestation: Total time spent providing and/or coordinating discharge services: DS: Data Data Completed and Pending Labs on day of discharge: 07/30/20 12:31 Calcium Chloride 1 gm .ROUTE .STK-MED ONE Dextrose 50 % [D50] 25 gm IVPUSH .STK-MED ONE EPINEPHrine [Adrenalin] 7 mg IVPUSH .STK-MED ONE Lidocaine HCl 2 % MPF [Xylocaine 2 % MPF] 5 ml .ROUTE .STK-MED ONE Sodium Bicarbonate 8.4% 50 meq .ROUTE .STK-MED ONE 07/30/20 15:54 Glucose, Whole Blood Routine 07/30/20 16:00 Dextrose 5 % and 0.9 % NaCl [D5ns] 1,000 ml IVCONT 80 mls/hr 07/30/20 16:27 Complete Blood Count Auto Diff Stat Comprehensive Met. Panel Stat Partial Thromboplastin Time Stat Prothrombin Time INR Stat 07/30/20 17:45 Transfer Order Routine 07/30/20 17:48 Code Status Routine 07/30/20 17:53 Glucose, blood poc .Now Consult Rx Perform Med Rec 1 each MISCELLANE ONCE STA 07/30/20 17:58 ECG 12 lead EKG Stat EKG Documentation DIRECTED 07/30/20 18:19 Glucose, Whole Blood Routine 07/30/20 18:37 Glucose, blood poc QIDACHS 07/30/20 18:43 Consult Rx Perform Med Rec 1 each MISCELLANE ONCE PRN 07/30/20 19:00 Dextrose 10 % [D10] 1,000 ml IVCONT 80 mls/hr 07/30/20 19:14 SARS COV2 PCR INHOUSE Stat 07/30/20 21:18 Glucose, Whole Blood Routine 07/30/20 22:08 Acetaminophen [Tylenol] 650 mg PO Q6H PRN Docusate Sodium [Colace] 100 mg PO BID Docusate Sodium [Colace] 100 mg PO DAILY PRN Enoxaparin Sodium [Lovenox] 40 mg SUBCUT Q24H Furosemide [Lasix] 60 mg PO BID Gabapentin [Neurontin] 300 mg PO TID Megestrol Acetate [Megace] 80 mg PO BID Nystatin Powder [Nystop Powder] 1 appl TOPICAL BID carvediloL [Coreg] 12.5 mg PO Q12H carvediloL [Coreg] 6.25 mg PO BID diphenhydrAMINE HCL [Benadryl] 50 mg PO Q8H PRN ondansetron HCL [Zofran] 4 mg IVPUSH Q8H PRN rosuvastatin 5 mg PO BEDTIME 07/30/20 22:08 IV insert/maintain Q4HR Intake and Output QSHIFTE Out of bed with assist NEEDED Oxygen administration Nasal Cannula 2 lpm Vital Signs QSHIFT RT BiPAP/CPAP BEDTIME 07/30/20 23:25 Glucose, Whole Blood Routine 07/31/20 00:00 0.9 % Sodium Chloride Flush [NS Flush] 3 ml IVFLUSH QSHIFT 07/31/20 00:19 Insert/maintain urinary catheter NOW 07/31/20 01:14 Glucose, Whole Blood Routine 07/31/20 02:06 Glucose, Whole Blood Routine 07/31/20 03:20 Glucose, Whole Blood Routine 07/31/20 04:04 Glucose, Whole Blood Routine 07/31/20 05:07 Glucose, Whole Blood Routine 07/31/20 05:59 Glucose, Whole Blood Routine 07/31/20 07:22 Glucose, Whole Blood Routine 07/31/20 08:02 Glucose, Whole Blood Routine 07/31/20 09:00 Glucose, Whole Blood Routine Aspirin Enteric Coated [Ecotrin] 81 mg PO DAILY Clopidogrel Bisulfate [Plavix] 75 mg PO DAILY Isosorbide Mononitrate [Imdur] 120 mg PO DAILY Theophylline Anhydrous ER [Theochron] 300 mg PO BID lisinopriL [Zestril] 30 mg PO DAILY 07/31/20 10:12 Glucose, Whole Blood Routine 07/31/20 10:58 Basic Metabolic Panel DAILY@0600 Complete Blood Count no Diff DAILY@0600 07/31/20 11:41 Glucose, Whole Blood Routine 07/31/20 12:31 oxyCODONE HCl Immed Release [Roxicodone] 10 mg PO TID PRN 07/31/20 16:17 Glucose, Whole Blood Routine 07/31/20 16:30 Insulin Lispro [Humalog] See Protocol SUBCUT QIDACHS 07/31/20 21:14 Glucose, Whole Blood Routine 08/01/20 05:36 Glucose, Whole Blood Routine 08/01/20 06:21 [facility] Consult .Routine Organ Donor Nursing Doc/Post Mortem Care .DIS 08/01/20 08:00 Furosemide [Lasix] 60 mg PO BID@0800,1700 08/01/20 14:47 [facility] Consult .Routine Organ Donor Nursing Doc/Post Mortem Care .DIS Laboratory Last Values WBC 5.7 X10*3/uL (4.8-10.8) 07/31/20 10:58 RBC 2.79 X10*6/uL (4.20-5.50) L 07/31/20 10:58 Hgb 8.6 g/dl (12.0-16.0) L 07/31/20 10:58 Hct 28.3 % (37-47) L 07/31/20 10:58 MCV 101.4 fL (80-98) H 07/31/20 10:58 MCH 30.8 pg (27.0-33.0) 07/31/20 10:58 MCHC 30.4 g/dl (31.0-35.0) L 07/31/20 10:58 RDW 13.4 % (11.0-16.0) 07/31/20 10:58 Plt Count 162 X10*3/uL (160-400) 07/31/20 10:58 MPV 11.5 fL (9.4-12.3) 07/31/20 10:58 Immature Gran % (Auto) 0.7 % (0.0-0.4) H 07/30/20 16:27 Neut % (Auto) 76.4 % (45-73) H 07/30/20 16:27 Lymph % (Auto) 10.7 % (20-40) L 07/30/20 16:27 [place] % (Auto) 8.0 % (2-11) 07/30/20 16:27 Eos % (Auto) 3.7 % (0-4) 07/30/20 16:27 Baso % (Auto) 0.5 % (0-2) 07/30/20 16:27 Lymph # (Auto) 1.1 X10*3/uL (1.2-4.9) L 07/30/20 16:27 [place] # (Auto) 0.8 X10*3/uL (0.1-1.2) 07/30/20 16:27 Eos # (Auto) 0.4 X10*3/uL (0.0-0.4) 07/30/20 16:27 Baso # (Auto) 0.1 X10*3/uL (0.0-0.2) 07/30/20 16:27 Abs Immat Gran (auto) 0.07 X10*3/uL (0.00-0.03) H 07/30/20 16:27 Absolute Neuts (auto) 7.8 X10*3/uL (2.0-8.3) 07/30/20 16:27 Absolute Nucleated RBC 0.000 X10*3/uL (0.0-0.012) 07/31/20 10:58 Nucleated RBC % (auto) 0.0 /100WBC (0.0-0.2) 07/31/20 10:58 PT 12.0 SEC (10.8-13.0) 07/30/20 16:27 INR 1.0 (0.9-1.1) 07/30/20 16:27 APTT 31.5 SEC (24.1-38.0) 07/30/20 16:27 Sodium 140 mmol/L (135-145) 07/31/20 10:58 Potassium 5.2 mmol/l (3.3-5.1) H 07/31/20 10:58 Chloride 101 mmol/L (96-108) 07/31/20 10:58 Carbon Dioxide 34 mmol/L (22-29) H 07/31/20 10:58 Anion Gap 10 (12-20) L 07/31/20 10:58 BUN 25 mg/dL (9-16) H 07/31/20 10:58 Creatinine 0.95 mg/dL (0.5-1.4) 07/31/20 10:58 Estim Creat Clear Calc 78.3 07/31/20 10:58 Estimated GFR > 60 07/31/20 10:58 POC Glucose 214 mg/dL (60-115) H 08/01/20 05:36 Random Glucose 166 mg/dL (60-115) H D 07/31/20 10:58 Calcium 7.5 mg/dL (8.4-10.2) L 07/31/20 10:58 Total Bilirubin 0.4 mg/dL (0.0-1.0) 07/30/20 16:27 AST 30 U/L (5-31) 07/30/20 16:27 ALT 11 U/L (0-31) 07/30/20 16:27 Alkaline Phosphatase 172 U/L (39-117) H 07/30/20 16:27 Total Protein 6.8 g/dL (6.5-8.0) 07/30/20 16:27 Albumin 2.8 g/dL (3.5-5.0) L 07/30/20 16:27 Coronavirus (PCR) NEGATIVE (Negative) 07/30/20 19:14 Discharge Plan Discharge Date/Time: 08/01/20 06:00 Patient Disposition: Referrals: [facility] [Primary Care Provider] - Discharge Medications: No Action Glucagon (HCl) Emergency Kit 1 mg recon soln 1 mg subcut Q20M PRN (Reason: hypoglycemia) Qty: 2 RF: 6 lisinopril 30 mg Tablet 30 mg PO DAILY Qty: 0 RF: 0 carvedilol [Coreg] 12.5 mg tablet 12.5 mg PO Q12H Qty: 60 RF: 0 carvedilol [Coreg] 6.25 mg tablet 6.25 mg PO BID Qty: 60 RF: 0 ketoconazole 2 % Shampoo 1 applic TOPICAL Q7D RF: 0 clopidogrel 75 mg Tablet 75 mg PO DAILY RF: 0 aspirin 81 mg Tablet,Delayed Release (Dr/Ec) 81 mg PO DAILY RF: 0 acetaminophen 500 mg Tablet 1,000 mg PO Q6H PRN (Reason: Pain (Scale Score 1-3)) RF: 0 Humulin R U-500 (Conc) Insulin 500 unit/mL Solution 85 unit subcut TIDAC RF: 0 isosorbide mononitrate 120 mg Tablet Extended Release 24 Hr 120 mg PO DAILY RF: 0 theophylline 300 mg Capsule,Extended Release 12 Hr 300 mg PO BID RF: 0 pantoprazole 40 mg Tablet,Delayed Release (Dr/Ec) 40 mg PO DAILY RF: 0 docusate sodium 100 mg Capsule 100 mg PO BID RF: 0 gabapentin 300 mg Capsule 300 mg PO TID RF: 0 furosemide 20 mg Tablet 60 mg PO BID RF: 0 nystatin 100,000 unit/gram Powder 1 applic TOPICAL BID RF: 0 megestrol 20 mg Tablet 80 mg PO BID RF: 0 ondansetron 4 mg Tablet,Disintegrating 8 mg PO BID RF: 0 oxycodone 5 mg Tablet 10 mg PO TID PRN (Reason: Pain (Scale Score 7-10)) RF: 0 rosuvastatin 5 mg Tablet 5 mg PO BEDTIME RF: 0 cholecalciferol (vitamin D3) [Vitamin D3] 125 mcg (5,000 unit) Tablet 125 mcg PO DAILY RF: 0 fluticasone prp-sod.chl,bicarb 50 mcg- 0.9 % Kit,[place] Suspension And [place] 2 spray INTRANASAL DAILY RF: 0 diphenhydramine HCl 25 mg Tablet 50 mg PO Q8H PRN (Reason: Itching) RF: 0 ferrous sulfate 325 mg (65 mg iron) Tablet 325 mg PO DAILY RF: 0 Discharge Orders: Discharge Order (Routine); Ordered 08/01/20 Ordered By: Rey Villatoro Discharge Date/Time: 08/01/20 10:00
== END 2020-08-01 10:00 | disposition expired ==
LOC: HO.ED 17:41 → HO.IMC 18:54
PROVIDERS: Physician Assistant; Physician Assistant Medical; Admitting Provider Internal Medicine; Emergency Provider Internal Medicine; Visit Provider Internal Medicine
DX: E16.2 Hypoglycemia, unspecified (principal); E11.9 Type 2 diabetes mellitus without complications; E78.5 Hyperlipidemia, unspecified; I45.4 Nonspecific intraventricular block; I25.10 Atherosclerotic heart disease of native coronary artery without angina pectoris; I11.0 Hypertensive heart disease with heart failure; I50.9 Heart failure, unspecified; R07.2 Precordial pain; U07.1 COVID-19; J44.9 Chronic obstructive pulmonary disease, unspecified; Z87.891 Personal history of nicotine dependence; Z88.8 Allergy status to other drugs, medicaments and biological substances; Z79.899 Other long term (current) drug therapy
CPT/HCPCS: 36415; 80048; 80053; 82947; 85025; 85027; 85610; 85730; 93005; 96361; 96372; 96374; 99219; 99284; 99285; C1758; J0171; J1650; U0003